=== PATIENT | male | born 1965 | race Caucasian/White ===

== ENCOUNTER 2022-07-06 13:10 | Inpatient (IN) | payer OTHER ==
[~2022-07-06 13:10] MED LIST: Heparin 1,000 UNITS/ML VIAL ONE
[2022-07-06 13:45] LABS: Hemoglobin 17.8 g/dL (14.0-18.0); Mean Corpuscular HGB CONC 34.7 g/dL (32.0-36.0); Mean Corpuscular Hemoglobin 38.6 pg (27.0-31.0); Mean Platelet Volume 7.4 fL (7.4-10.4); Platelet Count 286 thou/uL (130-400); RBC Distribution Width 12.7 % (11.5-14.5); Red Blood Cell (RBC) Count 4.61 mill/uL (4.70-6.10); White Blood Cell (WBC) Count 20.5 thou/uL (4.8-10.8)
[2022-07-06 14:00] LABS: Band 19 % (5-11); Lymphocytes 4 % (21-51); MDiff Complete? YES; Macrocytosis MODERATE=16-30 cells (100X) (0-5/hpf); Monocytes 4 % (0-10); Neutrophil 72 % (42-75); Platelet Morphology Comment Appears Adequate; Polychromasia SLIGHT = 2-3 cells (100X) (0-2/hpf); Reactive Lymphocytes 1 % (0-10); Stomatocytes SLIGHT = 2-5 cells (100X) (0-1/hpf)
[2022-07-06 14:08] LABS: ALT (SGPT) 107 U/L (8-55); AST (SGOT) 157 U/L (5-34); Albumin 3.7 g/dL (3.5-5.0); Alkaline Phosphatase 198 U/L (40-110); Anion Gap 25 mmol/L (10-20); BUN (Urea Nitrogen) 17 mg/dL (8.4-25.7); Bilirubin, Total 2.5 mg/dL (0.2-1.2); Calc. Creatinine Clearance 0 mL/min (70-130); Calcium 10.4 mg/dL (7.8-10.44); Carbon Dioxide 25 mmol/L (22-29); Chloride 91 mmol/L (98-107); Estimated GFR 19; Globulin 3.8 g/dL (2.4-3.5); Glucose 131 mg/dL (70-105); Magnesium 1.4 mg/dL (1.6-2.6); Potassium 3.2 mmol/L (3.5-5.1); Protein, Total 7.5 g/dL (6.0-8.3); Sodium 138 mmol/L (136-145)
[2022-07-06 14:22] LABS: Lipase 2961 U/L (8-78)
[2022-07-06 15:04] LABS: INR-International Normal Ratio 1.1; Prothrombin Time 14.6 sec (12.0-14.7)
[2022-07-06] MEDS ORDERED: Magnesium 2 GM/50 ML BAG (IN WATER) ONE (16:05)
[2022-07-06] MEDS ORDERED: Meropenem 1 GM in Sodium Chloride 0.9% 100 ML IVPB SCH ×3 (16:15→18:30)
[2022-07-06] MEDS ORDERED: Senokot S 8.6-50 MG TAB PO PRN (17:07)
[2022-07-06] MEDS ORDERED: Ondansetron ODT 4 MG TAB PO PRN (17:07)
[2022-07-06] MEDS ORDERED: Calcium Carbonate 500 MG ChewTAB PO PRN (17:07)
[2022-07-06] MEDS ORDERED: Ondansetron PF 4 MG/2 ML Vial IVP PRN (17:07)
[2022-07-06] MEDS ORDERED: Lorazepam 1 MG TAB PO PRN (17:15)
[2022-07-06] MEDS ORDERED: Multivitamins, Adult 10 ML, Folic Acid 1 MG, Thiamine HCl 100 MG in Dextrose 5 %-0.45 %... IV SCH (17:15)
[2022-07-06] MEDS ORDERED: Lorazepam 2 MG/ML VIAL IM PRN (17:15)
[2022-07-06] MEDS ORDERED: Magnesium 2 GM/50 ML(in water) 2 GM in Premix Bag 1 BAG IVPB SCH (17:15)
[2022-07-06] MEDS ORDERED: Electrolyte Replacement Protocol 1 EACH FS SCH ×2 (17:15)
[2022-07-06] MEDS ORDERED: Morphine 2 MG/ML VIAL SLOW IVP PRN (17:22)
[2022-07-06] MEDS ORDERED: cloNIDine 0.1 MG TAB PO PRN (17:23)
[2022-07-06 17:49] LABS: Anion Gap 17 mmol/L (10-20); BUN (Urea Nitrogen) 19 mg/dL (8.4-25.7); Calc. Creatinine Clearance 0 mL/min (70-130); Calcium 7.9 mg/dL (7.8-10.44); Carbon Dioxide 24 mmol/L (22-29); Chloride 100 mmol/L (98-107); Estimated GFR 21; Glucose 87 mg/dL (70-105); Potassium 3.3 mmol/L (3.5-5.1); Sodium 138 mmol/L (136-145)
[2022-07-06 18:04] LABS: SARS-CoV-2 NAA Rapid Test Not Detected (NotDetected)
[2022-07-06] MEDS ORDERED: Potassium Chloride 20 MEQ TAB PO SCH (18:30)
[2022-07-06] MEDS: Lorazepam 1 MG TAB PO SCH (19:45)
[2022-07-06] MEDS: Heparin 5,000 UNITS/ML VIAL SC SCH (21:34)
[2022-07-06] MEDS: Pantoprazole 40 MG VIAL IVP SCH (21:34)
[2022-07-07] MEDS: Sodium Chloride 0.9% 1,000 ML IV SCH ×6 (00:30→23:21)
[2022-07-07] MEDS: Lorazepam 1 MG TAB PO SCH ×5 (00:45→22:19)
[2022-07-07] MEDS: Meropenem 1 GM in Sodium Chloride 0.9% 100 ML IVPB SCH ×2 (01:15→15:13)
[2022-07-07 04:26] LABS: Lactic Acid 1.6 mmol/L (0.5-2.2)
[2022-07-07 04:34] LABS: Phosphorus 1.9 mg/dL (2.3-4.7)
[2022-07-07 04:35] LABS: ALT (SGPT) 61 U/L (8-55); AST (SGOT) 97 U/L (5-34); Albumin 2.5 g/dL (3.5-5.0); Alkaline Phosphatase 133 U/L (40-110); Anion Gap 13 mmol/L (10-20); BUN (Urea Nitrogen) 26 mg/dL (8.4-25.7); Bilirubin, Total 1.4 mg/dL (0.2-1.2); Calc. Creatinine Clearance 27 mL/min (70-130); Calcium 6.7 mg/dL (7.8-10.44); Carbon Dioxide 25 mmol/L (22-29); Chloride 101 mmol/L (98-107); Estimated GFR 23; Globulin 2.5 g/dL (2.4-3.5); Glucose 101 mg/dL (70-105); Magnesium 1.6 mg/dL (1.6-2.6); Potassium 3.4 mmol/L (3.5-5.1); Sodium 136 mmol/L (136-145)
[2022-07-07 04:54] LABS: #Lymphocytes 1.5 thou/uL (1.20-3.40); #Monocytes 1.3 thou/uL (0.11-0.59); %Basophils 0.1 % (0.0-1.0); %Eosinophils 0.3 % (0.0-10.0); %Lymphocytes 10.3 % (21.0-51.0); %Monocytes 8.8 % (0.0-10.0); %Neutrophils 80.5 % (42.0-75.0); Band 19 % (5-11); Hemoglobin 13.7 g/dL (14.0-18.0); Lymphocytes 1 % (21-51); MDiff Complete? YES; Mean Corpuscular HGB CONC 34.3 g/dL (32.0-36.0); Mean Corpuscular Hemoglobin 39.1 pg (27.0-31.0); Mean Platelet Volume 7.5 fL (7.4-10.4); Monocytes 5 % (0-10); Neutrophil 75 % (42-75); Nucleated RBC 1 % (0); Platelet Count 202 thou/uL (130-400); RBC Distribution Width 12.4 % (11.5-14.5); Red Blood Cell (RBC) Count 3.49 mill/uL (4.70-6.10); White Blood Cell (WBC) Count 14.9 thou/uL (4.8-10.8)
[2022-07-07] MEDS ORDERED: Potassium Phosphate 15 MMOL in Sodium Chloride 0.9% 100 ML IVPB SCH (06:00)
[2022-07-07] MEDS ORDERED: Magnesium 2 GM/50 ML(in water) 2 GM in Premix Bag 1 BAG IVPB SCH (09:00)
[2022-07-07] MEDS ORDERED: cloNIDine 0.1 MG TAB PO PRN (10:40)
[2022-07-07] MEDS ORDERED: PHOS-NAK 1 PKT PACK PO SCH ×2 (10:45)
[2022-07-07] MEDS: Cyanocobalamin (Vitamin B-12) 1,000 MCG TAB PO SCH (10:54)
[2022-07-07] MEDS: Multivit, Therapeutic 1 TAB PO SCH (10:54)
[2022-07-07] MEDS: pyridOXINE 50 MG (B6) TAB PO SCH (10:54)
[2022-07-07] MEDS: Folic Acid 1 MG TAB PO SCH (10:54)
[2022-07-07] MEDS: Pantoprazole 40 MG VIAL IVP SCH ×2 (10:54→20:08)
[2022-07-07] MEDS: Heparin 5,000 UNITS/ML VIAL SC SCH ×2 (10:54→20:08)
[2022-07-07] MEDS: Thiamine 100 MG TAB PO SCH (10:54)
[2022-07-07 11:08] LABS: Lipase 857 U/L (8-78)
[2022-07-07] MEDS: Albumin 25% 25 GM/100 ML BOT IVPB SCH ×3 (11:10→23:21)
[2022-07-07] MEDS: Meropenem 500 MG in Sodium Chloride 0.9% 100 ML IVPB SCH (15:17)
[2022-07-07] MEDS ORDERED: chlordiazePOXIDE HCl 25 MG CAP PO SCH (16:45)
[2022-07-07] MEDS ORDERED: Fentanyl 100 MCG/2 ML VIAL SLOW IVP PRN (22:06)
[2022-07-08] MEDS: Lorazepam 1 MG TAB PO PRN ×3 (02:46→13:05)
[2022-07-08] MEDS: Meropenem 500 MG in Sodium Chloride 0.9% 100 ML IVPB SCH (02:56)
[2022-07-08] MEDS: Sodium Chloride 0.9% 1,000 ML IV SCH (02:57)
[2022-07-08] MEDS: Lorazepam 1 MG TAB PO SCH ×3 (05:21→17:35)
[2022-07-08] MEDS: Albumin 25% 25 GM/100 ML BOT IVPB SCH ×3 (05:21→13:19)
[2022-07-08] MEDS ORDERED: Furosemide 40 MG/4 ML VIAL SLOW IVP SCH (05:45)
[2022-07-08] MEDS ORDERED: methylPREDNISolone Sod Succ 40 MG VIAL IVP SCH (06:00)
[2022-07-08 06:34] LABS: Bacteria/HPF None Seen HPF (None Seen); Bilirubin Negative (Negative); Blood, Urine 2+ (Negative); Clarity Clear (Clear); Glucose, Urine (Dipstick) 70 mg/dL (Negative); Ketone, Urine 10 mg/dL (Negative); Leukocyte Negative Leu/uL (Negative); Nitrite Negative (Negative); Protein, Urine (Dipstick) 30 mg/dL (Neg-Trace); RBC/HPF 0-3 HPF (0-3); Specific Gravity, Urine 1.014 (1.002-1.036); Squamous Epithelial None Seen HPF (0-3); Urobilinogen Normal mg/dL (Less than 2); WBC/HPF 0-3 HPF (0-3); pH, Urine 5.5 (5.0-9.0)
[2022-07-08 07:18] LABS: #Lymphocytes 0.9 thou/uL (1.20-3.40); #Monocytes 1.3 thou/uL (0.11-0.59); #Neutrophils 11.2 thou/uL (1.40-6.50); %Basophils 0.1 % (0.0-1.0); %Eosinophils 0.2 % (0.0-10.0); %Monocytes 9.5 % (0.0-10.0); %Neutrophils 83.2 % (42.0-75.0); Hemoglobin 11.8 g/dL (14.0-18.0); Mean Corpuscular Hemoglobin 37.8 pg (27.0-31.0); Mean Platelet Volume 7.4 fL (7.4-10.4); Platelet Count 192 thou/uL (130-400); RBC Distribution Width 12.2 % (11.5-14.5); Red Blood Cell (RBC) Count 3.13 mill/uL (4.70-6.10); White Blood Cell (WBC) Count 13.5 thou/uL (4.8-10.8)
[2022-07-08 07:28] LABS: Phosphorus 1.9 mg/dL (2.3-4.7)
[2022-07-08 07:35] LABS: ALT (SGPT) 45 U/L (8-55); AST (SGOT) 83 U/L (5-34); Albumin 3.6 g/dL (3.5-5.0); Alkaline Phosphatase 113 U/L (40-110); Anion Gap 18 mmol/L (10-20); BUN (Urea Nitrogen) 24 mg/dL (8.4-25.7); Bilirubin, Total 1.4 mg/dL (0.2-1.2); Calc. Creatinine Clearance 73 mL/min (70-130); Calcium 5.4 mg/dL (7.8-10.44); Carbon Dioxide 15 mmol/L (22-29); Chloride 103 mmol/L (98-107); Estimated GFR 71; Globulin 2.2 g/dL (2.4-3.5); Glucose 77 mg/dL (70-105); Lipase 179 U/L (8-78); Magnesium 1.6 mg/dL (1.6-2.6); Potassium 2.7 mmol/L (3.5-5.1); Protein, Total 5.8 g/dL (6.0-8.3); Sodium 133 mmol/L (136-145)
[2022-07-08] MEDS ORDERED: Electrolyte Replacement Protocol 1 EACH FS SCH ×2 (07:45→18:26)
[2022-07-08] MEDS ORDERED: Potassium Phosphate 15 MMOL in Sodium Chloride 0.9% 100 ML IVPB SCH (08:00)
[2022-07-08] MEDS ORDERED: Potassium Chloride 20 MEQ in Premix Bag 1 BAG IVPB SCH (08:00)
[2022-07-08] MEDS ORDERED: chlordiazePOXIDE HCl 25 MG CAP PO SCH (09:00)
[2022-07-08] MEDS: Thiamine 100 MG TAB PO SCH (09:03)
[2022-07-08] MEDS: Folic Acid 1 MG TAB PO SCH (09:03)
[2022-07-08] MEDS: Pantoprazole 40 MG VIAL IVP SCH ×2 (09:03→20:44)
[2022-07-08] MEDS: Multivit, Therapeutic 1 TAB PO SCH (09:03)
[2022-07-08] MEDS: Heparin 5,000 UNITS/ML VIAL SC SCH ×2 (09:03→20:22)
[2022-07-08] MEDS: Cyanocobalamin (Vitamin B-12) 1,000 MCG TAB PO SCH (09:03)
[2022-07-08] MEDS: pyridOXINE 50 MG (B6) TAB PO SCH (11:02)
[2022-07-08] MEDS ORDERED: Magnesium Sulfate In Water 4 GM in Premix Bag 1 BAG IVPB SCH (12:00)
[2022-07-08 13:00] LABS: Actual Bicarbonate (HCO3v) 15 mEq/L (22-28); Base Excess -8.2 mEq/L (-2.0 to +3.0); Calcium, Ionized (venous) 0.72 mmol/L (1.16-1.32); Chloride (VBG) 102 mmol/L (98-106); Hemoglobin (Hb) 12.7 g/dL (13.1-17.2); Potassium (VBG) 2.81 mmol/L (3.70-5.30); Sodium 133.8 mmol/L (133-146); pH (venous) 7.38 (7.32-7.43)
[2022-07-08] MEDS: Meropenem 1 GM in Sodium Chloride 0.9% 100 ML IVPB SCH ×2 (14:14→20:44)
[2022-07-08] MEDS ORDERED: Dexmedetomidine In 0.9 % NaCl 100 ML IVPB SCH (15:15)
[2022-07-08] MEDS ORDERED: Sodium Bicarbonate 150 MEQ in Dextrose 5% in Water 1,000 ML IV SCH (15:30)
[2022-07-08] MEDS: Midazolam HCl 2 mg/2 ml Vial SLOW IVP PRN ×3 (15:55→18:47)
[2022-07-08] MEDS ORDERED: Lorazepam 1 MG TAB PO PRN (17:16)
[2022-07-08] MEDS ORDERED: Lorazepam 0.5 MG TAB PO SCH (17:30)
[2022-07-08 17:59] LABS: Albumin 3.2 g/dL (3.5-5.0); Anion Gap 23 mmol/L (10-20); BUN (Urea Nitrogen) 24 mg/dL (8.4-25.7); BUN/Creatinine Ratio 24.24; Calc. Creatinine Clearance 89 mL/min (70-130); Carbon Dioxide 8 mmol/L (22-29); Chloride 104 mmol/L (98-107); Estimated GFR 89; Glucose 75 mg/dL (70-105); Phosphorus 2.6 mg/dL (2.3-4.7); Potassium 2.9 mmol/L (3.5-5.1); Sodium 132 mmol/L (136-145)
[2022-07-08] MEDS ORDERED: Calcium Gluc 4.6 MEQ/10 ML (100 MG/ML) SLOW IVP SCH ×4 (18:08→23:45)
[2022-07-08] MEDS ORDERED: Sodium Bicarb 50 MEQ/50 ML Abboject 8.4% SYRINGE IVP SCH (18:15)
[2022-07-08 18:31] LABS: Actual Bicarbonate (HCO3v) 18 mEq/L (22-28); Base Excess -5.4 mEq/L (-2.0 to +3.0); Calcium, Ionized (venous) 0.67 mmol/L (1.16-1.32); Chloride (VBG) 102 mmol/L (98-106); Hemoglobin (Hb) 11.9 g/dL (13.1-17.2); Potassium (VBG) 2.78 mmol/L (3.70-5.30); pH (venous) 7.41 (7.32-7.43)
[2022-07-08] MEDS ORDERED: Fentanyl 100 MCG/2 ML VIAL ONE (18:37)
[2022-07-08] MEDS ORDERED: Fentanyl CADD 100 ML ONE (18:54)
[2022-07-08] MEDS ORDERED: Ventilator Sedation Protocol 1 EACH FS ONE (18:55)
[2022-07-08] MEDS: Fentanyl CADD 100 ML IV SCH (19:05)
[2022-07-08] MEDS ORDERED: Propofol BOLUS 1,000 MG/100 ML VIAL IV PRN (19:15)
[2022-07-08] MEDS ORDERED: DISCONTINUE PREVIOUS NARCOTIC PAIN MEDICATIONS AND BENZODIAZEPINES FS SCH (19:15)
[2022-07-08] MEDS ORDERED: Propofol 1,000 MG/100 ML VIAL IV PRN (19:15)
[2022-07-08] MEDS ORDERED: Fentanyl BOLUS 250 ML IVPB PRN (19:15)
[2022-07-08 19:17] LABS: Actual Bicarbonate (HCO3a) 17.6 mEq/L (22-28); Base Excess (BEa) -6.6 mEq/L (-2.0 to +3.0); CO2 Tension 30.7 mmHg (35.0-45.0); Carboxyhemoglobin (COHb) 0.3 gm% (0.0-3.0); Hemoglobin (Hb) 11.3 g/dL (14.0-18.0); O2 Tension (PaO2), arterial 100.6 mmHg (80.0-100.0); Potassium - ABG Lab 2.47 mmol/L (3.70-5.30); pH, Arterial 7.38 (7.35-7.45)
[2022-07-08 19:26] LABS: ALV-art Gradient 288.825 mmHg (0-20); Puncture Site LRA
[2022-07-08] MEDS ORDERED: Rocuronium Bromide 50 MG/5 ML VIAL IVP SCH (19:30)
[2022-07-08] MEDS ORDERED: Rocuronium Bromide 10 MG/ML (10ML VIAL) ONE (19:33)
[2022-07-08] MEDS: Sodium Bicarbonate 150 MEQ in Dextrose 5% in Water 1,000 ML IV SCH (19:47)
[2022-07-08] MEDS: Potassium Chloride 20 MEQ in Premix Bag 1 BAG IVPB SCH ×2 (20:44→22:37)
[2022-07-08 22:56] LABS: Anion Gap 19 mmol/L (10-20); BUN (Urea Nitrogen) 23 mg/dL (8.4-25.7); Calc. Creatinine Clearance 93 mL/min (70-130); Carbon Dioxide 18 mmol/L (22-29); Chloride 102 mmol/L (98-107); Estimated GFR 94; Glucose 127 mg/dL (70-105); Sodium 136 mmol/L (136-145)
[2022-07-08 23:01] LABS: Calcium 5.1 mg/dL (7.8-10.44); Potassium 2.8 mmol/L (3.5-5.1)
[2022-07-08 23:53] LABS: Magnesium 2.2 mg/dL (1.6-2.6)
[2022-07-09] MEDS: Potassium Chloride 20 MEQ in Premix Bag 1 BAG IVPB SCH ×8 (00:26→13:57)
[2022-07-09] MEDS: Sodium Bicarbonate 150 MEQ in Dextrose 5% in Water 1,000 ML IV SCH (03:26)
[2022-07-09] MEDS: Meropenem 1 GM in Sodium Chloride 0.9% 100 ML IVPB SCH ×3 (04:01→20:43)
[2022-07-09 04:03] LABS: Lactic Acid 1.5 mmol/L (0.5-2.2)
[2022-07-09 04:04] LABS: Phosphorus 2.2 mg/dL (2.3-4.7)
[2022-07-09 04:07] LABS: ALT (SGPT) 32 U/L (8-55); AST (SGOT) 58 U/L (5-34); Albumin 2.8 g/dL (3.5-5.0); Alkaline Phosphatase 93 U/L (40-110); Anion Gap 15 mmol/L (10-20); BUN (Urea Nitrogen) 24 mg/dL (8.4-25.7); Calc. Creatinine Clearance 84 mL/min (70-130); Carbon Dioxide 27 mmol/L (22-29); Chloride 97 mmol/L (98-107); Estimated GFR 83; Globulin 1.8 g/dL (2.4-3.5); Glucose 302 mg/dL (70-105); Protein, Total 4.6 g/dL (6.0-8.3); Sodium 136 mmol/L (136-145)
[2022-07-09 04:13] LABS: Potassium 2.7 mmol/L (3.5-5.1)
[2022-07-09] MEDS ORDERED: Potassium Chloride 20 MEQ in Premix Bag 1 BAG IVPB SCH (05:00)
[2022-07-09 05:12] LABS: Band 31 % (5-11); Eosinophils 1 % (0-10); Hemoglobin 9.9 g/dL (14.0-18.0); Lymphocytes 12 % (21-51); MDiff Complete? YES; Mean Corpuscular HGB CONC 34.6 g/dL (32.0-36.0); Mean Corpuscular Hemoglobin 38.6 pg (27.0-31.0); Mean Platelet Volume 7.6 fL (7.4-10.4); Monocytes 3 % (0-10); Neutrophil 53 % (42-75); Platelet Count 180 thou/uL (130-400); RBC Distribution Width 12.3 % (11.5-14.5); Red Blood Cell (RBC) Count 2.57 mill/uL (4.70-6.10); White Blood Cell (WBC) Count 10.4 thou/uL (4.8-10.8)
[2022-07-09] MEDS ORDERED: Sodium Chloride 0.9% 500 ML IVPB SCH (07:00)
[2022-07-09 07:41] LABS: Actual Bicarbonate (HCO3a) 21.1 mEq/L (22-28); Base Excess (BEa) -0.5 mEq/L (-2.0 to +3.0); CO2 Tension 26.6 mmHg (35.0-45.0); O2 Tension (PaO2), arterial 63.9 mmHg (80.0-100.0); pH, Arterial 7.52 (7.35-7.45)
[2022-07-09 07:42] LABS: Analyzer IN Cardio OR; Calcium, Ionized (arterial) 0.76 mmol/L (1.12-1.30); Carboxyhemoglobin (COHb) 0.5 gm% (0.0-3.0); Hemoglobin (Hb) 12.9 g/dL (14.0-18.0); Potassium - ABG Lab 3.03 mmol/L (3.70-5.30); Puncture Site LRA
[2022-07-09] MEDS ORDERED: Sodium Chloride 0.9% 1,000 ML IV SCH ×2 (07:45→09:00)
[2022-07-09] MEDS ORDERED: Magnesium 2 GM/50 ML(in water) 2 GM in Premix Bag 1 BAG IVPB SCH (08:00)
[2022-07-09] MEDS: Multivit, Therapeutic 1 TAB PO SCH (08:56)
[2022-07-09] MEDS: Folic Acid 1 MG TAB PO SCH (08:56)
[2022-07-09] MEDS: pyridOXINE 50 MG (B6) TAB PO SCH (08:56)
[2022-07-09] MEDS: Pantoprazole 40 MG VIAL IVP SCH ×2 (08:56→20:44)
[2022-07-09] MEDS: Cyanocobalamin (Vitamin B-12) 1,000 MCG TAB PO SCH (08:56)
[2022-07-09] MEDS: Thiamine 100 MG TAB PO SCH (08:56)
[2022-07-09] MEDS: Heparin 5,000 UNITS/ML VIAL SC SCH ×2 (08:56→20:44)
[2022-07-09] MEDS: Sodium Chloride 0.9% 1,000 ML IV SCH ×4 (08:57→20:00)
[2022-07-09] MEDS: CALCIUM GLUC 1GM/NS 50ML 1 GM in Premix Bag 1 BAG IVPB SCH ×2 (09:39→10:51)
[2022-07-09 10:37] LABS: Free T4 (Free Thyroxine) 0.88 ng/dL (0.70-1.48)
[2022-07-09] MEDS: Midazolam HCl 2 mg/2 ml Vial SLOW IVP PRN ×2 (10:50→15:44)
[2022-07-09] MEDS: Albumin 25% 25 GM/100 ML BOT IVPB SCH ×3 (12:11→23:26)
[2022-07-09] MEDS ORDERED: Fentanyl CADD 100 ML ONE (16:55)
[2022-07-09] MEDS: Fentanyl CADD 100 ML IV SCH (16:58)
[2022-07-09] MEDS ORDERED: Lorazepam 0.5 MG TAB PO PRN (17:16)
[2022-07-09 17:30] LABS: Anion Gap 15 mmol/L (10-20); BUN (Urea Nitrogen) 27 mg/dL (8.4-25.7); Calc. Creatinine Clearance 65 mL/min (70-130); Calcium 4.9 mg/dL (7.8-10.44); Carbon Dioxide 18 mmol/L (22-29); Chloride 109 mmol/L (98-107); Estimated GFR 59; Glucose 89 mg/dL (70-105); Potassium 4.3 mmol/L (3.5-5.1); Sodium 138 mmol/L (136-145)
[2022-07-09] MEDS ORDERED: Calcium Gluconate 4.6 MEQ in Sodium Chloride 0.9% 100 ML IVPB ONE (17:35)
[2022-07-09] MEDS ORDERED: CALCIUM GLUC 1GM/NS 50ML 1 GM in Premix Bag 1 BAG IVPB SCH (17:45)
[2022-07-09] MEDS ORDERED: Calcium Gluc 4.6 MEQ/10 ML (100 MG/ML) SLOW IVP SCH (18:00)
[2022-07-10] MEDS: Sodium Chloride 0.9% 1,000 ML IV SCH ×2 (00:34→06:44)
[2022-07-10] MEDS ORDERED: Dextrose 50% Abboject 50 ML SYRINGE SLOW IVP PRN (00:45)
[2022-07-10 04:26] LABS: Phosphorus 2.1 mg/dL (2.3-4.7)
[2022-07-10 04:27] LABS: ALT (SGPT) 30 U/L (8-55); AST (SGOT) 74 U/L (5-34); Albumin 3.4 g/dL (3.5-5.0); Alkaline Phosphatase 85 U/L (40-110); Anion Gap 19 mmol/L (10-20); BUN (Urea Nitrogen) 30 mg/dL (8.4-25.7); Bilirubin, Total 1.7 mg/dL (0.2-1.2); Calc. Creatinine Clearance 47 mL/min (70-130); Carbon Dioxide 14 mmol/L (22-29); Chloride 110 mmol/L (98-107); Estimated GFR 40; Globulin 1.7 g/dL (2.4-3.5); Glucose 99 mg/dL (70-105); Magnesium 2.2 mg/dL (1.6-2.6); Protein, Total 5.1 g/dL (6.0-8.3); Sodium 139 mmol/L (136-145)
[2022-07-10 04:33] LABS: Calcium 5.2 mg/dL (7.8-10.44)
[2022-07-10 05:05] LABS: Band 38 % (5-11); Hemoglobin 9.3 g/dL (14.0-18.0); Lymphocytes 8 % (21-51); MDiff Complete? YES; Mean Corpuscular HGB CONC 33.3 g/dL (32.0-36.0); Mean Corpuscular Hemoglobin 38.5 pg (27.0-31.0); Mean Platelet Volume 8.1 fL (7.4-10.4); Monocytes 5 % (0-10); Neutrophil 49 % (42-75); Platelet Count 181 thou/uL (130-400); RBC Distribution Width 12.4 % (11.5-14.5); Red Blood Cell (RBC) Count 2.43 mill/uL (4.70-6.10); Toxic Granulation SLIGHT
[2022-07-10] MEDS: Albumin 25% 25 GM/100 ML BOT IVPB SCH (05:12)
[2022-07-10] MEDS: Meropenem 1 GM in Sodium Chloride 0.9% 100 ML IVPB SCH ×2 (05:12→17:52)
[2022-07-10] MEDS ORDERED: Calcium Gluc 4.6 MEQ/10 ML (100 MG/ML) SLOW IVP SCH (06:45)
[2022-07-10] MEDS: Midazolam HCl 2 mg/2 ml Vial SLOW IVP PRN (07:07)
[2022-07-10 07:18] LABS: Base Excess (BEa) -9.3 mEq/L (-2.0 to +3.0); CO2 Tension 32.7 mmHg (35.0-45.0); Calcium, Ionized (arterial) 0.84 mmol/L (1.12-1.30); Carboxyhemoglobin (COHb) 0.1 gm% (0.0-3.0); Hemoglobin (Hb) 10.7 g/dL (14.0-18.0); Potassium - ABG Lab 4.27 mmol/L (3.70-5.30); pH, Arterial 7.31 (7.35-7.45)
[2022-07-10] MEDS: NOREPINEPHRINE 8 MG/250 ML-D5W 250 ML IVPB SCH (07:19)
[2022-07-10 07:45] LABS: ALV-art Gradient 210.225 mmHg (0-20); O2 Tension (PaO2), arterial 34.1 mmHg (80.0-100.0); Puncture Site RRA
[2022-07-10] MEDS ORDERED: Midazolam In 0.9 % NaCl/PF 100 MG in Premix Bag 1 BAG IVPB SCH (08:45)
[2022-07-10] MEDS ORDERED: Sodium Chloride 0.9% 1,000 ML IV SCH (08:59)
[2022-07-10] MEDS: Heparin 5,000 UNITS/ML VIAL SC SCH ×2 (09:21→20:11)
[2022-07-10] MEDS: Multivit, Therapeutic 1 TAB PO SCH (09:21)
[2022-07-10] MEDS: Thiamine 100 MG TAB PO SCH (09:21)
[2022-07-10] MEDS: pyridOXINE 50 MG (B6) TAB PO SCH (09:21)
[2022-07-10] MEDS: Folic Acid 1 MG TAB PO SCH (09:21)
[2022-07-10] MEDS: Cyanocobalamin (Vitamin B-12) 1,000 MCG TAB PO SCH (09:21)
[2022-07-10] MEDS: Pantoprazole 40 MG VIAL IVP SCH ×2 (09:22→20:11)
[2022-07-10] MEDS ORDERED: Fentanyl CADD 100 ML ONE (16:05)
[2022-07-10] MEDS: Fentanyl CADD 100 ML IV SCH (16:12)
[2022-07-10] MEDS: Dextrose 5 % And 0.9 % NaCl 1,000 ML IV SCH (17:51)
[2022-07-10 18:47] LABS: Anion Gap 20 mmol/L (10-20); BUN (Urea Nitrogen) 33 mg/dL (8.4-25.7); Calc. Creatinine Clearance 55 mL/min (70-130); Carbon Dioxide 13 mmol/L (22-29); Chloride 110 mmol/L (98-107); Estimated GFR 47; Glucose 76 mg/dL (70-105); Potassium 4.2 mmol/L (3.5-5.1); Sodium 139 mmol/L (136-145)
[2022-07-10 18:53] LABS: Calcium 5.4 mg/dL (7.8-10.44)
[2022-07-10] MEDS ORDERED: Furosemide 100 MG/10 ML VIAL SLOW IVP SCH (19:15)
[2022-07-10] MEDS ORDERED: Sodium Bicarb 50 MEQ/50 ML Abboject 8.4% SYRINGE IVP SCH (19:30)
[2022-07-10] MEDS: Sodium Bicarb 50 MEQ/50 ML VIAL IVP SCH ×2 (20:11→22:02)
[2022-07-11] MEDS: Sodium Bicarb 50 MEQ/50 ML VIAL IVP SCH (00:12)
[2022-07-11] MEDS: Meropenem 1 GM in Sodium Chloride 0.9% 100 ML IVPB SCH ×3 (04:13→22:04)
[2022-07-11 04:55] LABS: Lactic Acid 1.7 mmol/L (0.5-2.2)
[2022-07-11 05:04] LABS: ALT (SGPT) 36 U/L (8-55); AST (SGOT) 112 U/L (5-34); Albumin 2.8 g/dL (3.5-5.0); Alkaline Phosphatase 134 U/L (40-110); Anion Gap 18 mmol/L (10-20); BUN (Urea Nitrogen) 34 mg/dL (8.4-25.7); Bilirubin, Total 1.8 mg/dL (0.2-1.2); Calc. Creatinine Clearance 63 mL/min (70-130); Carbon Dioxide 19 mmol/L (22-29); Chloride 110 mmol/L (98-107); Estimated GFR 55; Glucose 107 mg/dL (70-105); Potassium 3.7 mmol/L (3.5-5.1); Protein, Total 4.8 g/dL (6.0-8.3); Sodium 143 mmol/L (136-145)
[2022-07-11 05:07] LABS: Calcium 5.4 mg/dL (7.8-10.44)
[2022-07-11 05:08] LABS: Band 24 % (5-11); Hemoglobin 10.4 g/dL (14.0-18.0); Hypochromia SLIGHT = 6-15 cells (100X) (0-5/hpf); Lymphocytes 12 % (21-51); MDiff Complete? YES; Macrocytosis SLIGHT = 6-15 cells (100X) (0-5/hpf); Mean Corpuscular HGB CONC 32.9 g/dL (32.0-36.0); Mean Platelet Volume 7.8 fL (7.4-10.4); Monocytes 4 % (0-10); Neutrophil 60 % (42-75); Platelet Count 243 thou/uL (130-400); Platelet Morphology Comment Appears Adequate; RBC Distribution Width 12.6 % (11.5-14.5); Red Blood Cell (RBC) Count 2.74 mill/uL (4.70-6.10); White Blood Cell (WBC) Count 17.2 thou/uL (4.8-10.8)
[2022-07-11 05:10] LABS: Phosphorus 2.7 mg/dL (2.3-4.7)
[2022-07-11 07:23] LABS: Actual Bicarbonate (HCO3a) 18.1 mEq/L (22-28); Base Excess (BEa) -4.7 mEq/L (-2.0 to +3.0); CO2 Tension 28.2 mmHg (35.0-45.0); Potassium - ABG Lab 3.54 mmol/L (3.70-5.30); pH, Arterial 7.43 (7.35-7.45)
[2022-07-11 07:29] LABS: O2 Tension (PaO2), arterial 51.6 mmHg (80.0-100.0); Puncture Site RRA
[2022-07-11] MEDS ORDERED: Magnesium 2 GM/50 ML(in water) 2 GM in Premix Bag 1 BAG IVPB SCH (08:00)
[2022-07-11] MEDS: Thiamine 100 MG TAB PO SCH (08:45)
[2022-07-11] MEDS: Pantoprazole 40 MG VIAL IVP SCH ×2 (08:46→21:41)
[2022-07-11] MEDS: Folic Acid 1 MG TAB PO SCH (08:46)
[2022-07-11] MEDS: Heparin 5,000 UNITS/ML VIAL SC SCH ×2 (08:46→21:41)
[2022-07-11] MEDS: Multivit, Therapeutic 1 TAB PO SCH (08:47)
[2022-07-11] MEDS: pyridOXINE 50 MG (B6) TAB PO SCH (08:47)
[2022-07-11] MEDS: Cyanocobalamin (Vitamin B-12) 1,000 MCG TAB PO SCH (08:47)
[2022-07-11] MEDS: NOREPINEPHRINE 8 MG/250 ML-D5W 250 ML IVPB SCH ×2 (08:58→11:35)
[2022-07-11] MEDS ORDERED: Meropenem 1 GM in Sodium Chloride 0.9% 100 ML IVPB SCH (13:00)
[2022-07-11] MEDS: Metoclopramide HCl 10 MG/2 ML VIAL IVP SCH ×2 (13:30→21:42)
[2022-07-11] MEDS ORDERED: CALCIUM GLUC 1GM/NS 50ML 1 GM in Premix Bag 1 BAG IVPB SCH (15:00)
[2022-07-11] MEDS: Dextrose 5 % And 0.9 % NaCl 1,000 ML IV SCH (15:40)
[2022-07-11 16:34] LABS: Anion Gap 15 mmol/L (10-20); BUN (Urea Nitrogen) 35 mg/dL (8.4-25.7); Calc. Creatinine Clearance 79 mL/min (70-130); Carbon Dioxide 20 mmol/L (22-29); Chloride 111 mmol/L (98-107); Estimated GFR 68; Glucose 122 mg/dL (70-105); Potassium 3.7 mmol/L (3.5-5.1); Sodium 142 mmol/L (136-145)
[2022-07-11 16:45] LABS: Calcium 5.3 mg/dL (7.8-10.44)
[2022-07-11] MEDS: Fentanyl CADD 100 ML IV SCH (20:02)
[2022-07-12] MEDS: NOREPINEPHRINE 8 MG/250 ML-D5W 250 ML IVPB SCH ×4 (00:44→22:08)
[2022-07-12] MEDS ORDERED: Sodium Bicarb 50 MEQ/50 ML VIAL ONE ×3 (02:57→10:55)
[2022-07-12 03:00] LABS: Actual Bicarbonate (HCO3a) 19.4 mEq/L (22-28); Analyzer IN Cardio ER; Base Excess (BEa) -6.8 mEq/L (-2.0 to +3.0); CO2 Tension 41.4 mmHg (35.0-45.0); Calcium, Ionized (arterial) 0.87 mmol/L (1.12-1.30); Carboxyhemoglobin (COHb) 0.3 gm% (0.0-3.0); Hemoglobin (Hb) 12.2 g/dL (14.0-18.0); Potassium - ABG Lab 3.85 mmol/L (3.70-5.30); pH, Arterial 7.29 (7.35-7.45)
[2022-07-12 03:02] LABS: Puncture Site RRA
[2022-07-12 03:04] LABS: Hemoglobin 11.3 g/dL (14.0-18.0); Mean Corpuscular HGB CONC 32.9 g/dL (32.0-36.0); Mean Corpuscular Hemoglobin 38.3 pg (27.0-31.0); Mean Platelet Volume 8.1 fL (7.4-10.4); Platelet Count 240 thou/uL (130-400); Red Blood Cell (RBC) Count 2.95 mill/uL (4.70-6.10); White Blood Cell (WBC) Count 23.8 thou/uL (4.8-10.8)
[2022-07-12 03:13] LABS: INR-International Normal Ratio 1.4
[2022-07-12] MEDS ORDERED: Propofol 1,000 MG/100 ML VIAL IV PRN (03:15)
[2022-07-12] MEDS ORDERED: Propofol BOLUS 1,000 MG/100 ML VIAL IV PRN (03:15)
[2022-07-12] MEDS ORDERED: Sodium Bicarb 50 MEQ/50 ML VIAL IVP SCH ×2 (03:15→11:30)
[2022-07-12] MEDS ORDERED: Propofol 1,000 MG/100 ML VIAL IV ONE (03:16)
[2022-07-12 03:22] LABS: ALT (SGPT) 41 U/L (8-55); AST (SGOT) 120 U/L (5-34); Albumin 2.7 g/dL (3.5-5.0); Alkaline Phosphatase 238 U/L (40-110); Anion Gap 15 mmol/L (10-20); BUN (Urea Nitrogen) 38 mg/dL (8.4-25.7); Calc. Creatinine Clearance 81 mL/min (70-130); Carbon Dioxide 21 mmol/L (22-29); Chloride 111 mmol/L (98-107); Estimated GFR 70; Globulin 2.2 g/dL (2.4-3.5); Glucose 129 mg/dL (70-105); Magnesium 2.2 mg/dL (1.6-2.6); Protein, Total 4.9 g/dL (6.0-8.3); Sodium 143 mmol/L (136-145)
[2022-07-12 03:26] LABS: Band 17 % (5-11); Lymphocytes 4 % (21-51); MDiff Complete? YES; Macrocytosis MODERATE=16-30 cells (100X) (0-5/hpf); Monocytes 4 % (0-10); Neutrophil 75 % (42-75); Ovalocytes SLIGHT = 2-5 cells (100X) (0-1/hpf); Platelet Morphology Comment Appears Adequate
[2022-07-12 03:30] LABS: Phosphorus 3.6 mg/dL (2.3-4.7)
[2022-07-12] MEDS ORDERED: Furosemide 40 MG/4 ML VIAL SLOW IVP SCH (03:30)
[2022-07-12] MEDS ORDERED: Sodium Bicarbonate 150 MEQ in Dextrose 5% in Water 1,000 ML IV SCH (03:45)
[2022-07-12] MEDS: Meropenem 1 GM in Sodium Chloride 0.9% 100 ML IVPB SCH ×3 (05:25→22:08)
[2022-07-12] MEDS: Metoclopramide HCl 10 MG/2 ML VIAL IVP SCH (05:25)
[2022-07-12] MEDS: Cyanocobalamin (Vitamin B-12) 1,000 MCG TAB PO SCH (07:57)
[2022-07-12] MEDS: Folic Acid 1 MG TAB PO SCH (07:57)
[2022-07-12] MEDS: Thiamine 100 MG TAB PO SCH (07:57)
[2022-07-12] MEDS: Pantoprazole 40 MG VIAL IVP SCH ×2 (07:58→20:03)
[2022-07-12] MEDS: Multivit, Therapeutic 1 TAB PO SCH (07:58)
[2022-07-12] MEDS: pyridOXINE 50 MG (B6) TAB PO SCH (07:58)
[2022-07-12] MEDS: Heparin 5,000 UNITS/ML VIAL SC SCH ×2 (10:07→20:03)
[2022-07-12 10:51] LABS: Actual Bicarbonate (HCO3a) 24.2 mEq/L (22-28); Calcium, Ionized (arterial) 0.89 mmol/L (1.12-1.30); Potassium - ABG Lab 4.16 mmol/L (3.70-5.30)
[2022-07-12 10:57] LABS: CO2 Tension 84.6 mmHg (35.0-45.0); Puncture Site RRA; pH, Arterial 7.07 (7.35-7.45)
[2022-07-12] MEDS ORDERED: Fentanyl CADD 100 ML ONE (11:34)
[2022-07-12] MEDS: Fentanyl CADD 100 ML IV SCH (11:35)
[2022-07-12] MEDS: Vasopressin 20 UNIT, Admixture Fee 1 EACH in Sodium Chloride 0.9% 50 ML IV SCH ×2 (13:11→19:33)
[2022-07-12] MEDS ORDERED: Insulin Regular 300 UNITS/3 ML VIAL SC PRN (13:34)
[2022-07-12] MEDS: Sodium Bicarbonate 150 MEQ in Dextrose 5% in Water 1,000 ML IV SCH ×2 (14:37→22:08)
[2022-07-12] MEDS ORDERED: [UNRECOGNIZED DRUG - REMARK] IVPB PRN (16:13)
[2022-07-12 16:18] LABS: Anion Gap 18 mmol/L (10-20); BUN (Urea Nitrogen) 40 mg/dL (8.4-25.7); Calc. Creatinine Clearance 63 mL/min (70-130); Carbon Dioxide 26 mmol/L (22-29); Chloride 106 mmol/L (98-107); Estimated GFR 51; Glucose 227 mg/dL (70-105); Potassium 3.9 mmol/L (3.5-5.1); Sodium 146 mmol/L (136-145)
[2022-07-12 16:23] LABS: Calcium 5.6 mg/dL (7.8-10.44)
[2022-07-12] MEDS: Insulin Regular 300 UNITS/3 ML VIAL SC PRN ×3 (16:29→23:17)
[2022-07-12] MEDS ORDERED: CALCIUM GLUC 1GM/NS 50ML 1 GM in Premix Bag 1 BAG IVPB SCH (16:45)
[2022-07-13] MEDS: Fentanyl CADD 100 ML IV SCH ×2 (00:50→14:17)
[2022-07-13] MEDS: Vasopressin 20 UNIT, Admixture Fee 1 EACH in Sodium Chloride 0.9% 50 ML IV SCH ×3 (02:14→17:41)
[2022-07-13] MEDS: Insulin Regular 300 UNITS/3 ML VIAL SC PRN ×5 (04:10→23:50)
[2022-07-13 04:38] LABS: Lactic Acid 6.2 mmol/L (0.5-2.2)
[2022-07-13 04:41] LABS: ALT (SGPT) 39 U/L (8-55); AST (SGOT) 156 U/L (5-34); Albumin 2.2 g/dL (3.5-5.0); Alkaline Phosphatase 239 U/L (40-110); Anion Gap 18 mmol/L (10-20); BUN (Urea Nitrogen) 37 mg/dL (8.4-25.7); Bilirubin, Total 1.3 mg/dL (0.2-1.2); Calc. Creatinine Clearance 92 mL/min (70-130); Carbon Dioxide 30 mmol/L (22-29); Chloride 101 mmol/L (98-107); Estimated GFR 80; Globulin 2.1 g/dL (2.4-3.5); Glucose 176 mg/dL (70-105); Magnesium 1.8 mg/dL (1.6-2.6); Protein, Total 4.3 g/dL (6.0-8.3); Sodium 146 mmol/L (136-145)
[2022-07-13 04:47] LABS: Band 21 % (5-11); Calcium 5.9 mg/dL (7.8-10.44); Hemoglobin 9.8 g/dL (14.0-18.0); Hypochromia SLIGHT = 6-15 cells (100X) (0-5/hpf); Lymphocytes 8 % (21-51); MDiff Complete? YES; Macrocytosis SLIGHT = 6-15 cells (100X) (0-5/hpf); Mean Corpuscular HGB CONC 33.4 g/dL (32.0-36.0); Mean Corpuscular Hemoglobin 38.3 pg (27.0-31.0); Mean Platelet Volume 8.4 fL (7.4-10.4); Monocytes 4 % (0-10); Neutrophil 67 % (42-75); Phosphorus 2.7 mg/dL (2.3-4.7); Platelet Count 208 thou/uL (130-400); Platelet Morphology Comment Appears Adequate; Potassium 2.7 mmol/L (3.5-5.1); Red Blood Cell (RBC) Count 2.56 mill/uL (4.70-6.10); White Blood Cell (WBC) Count 17.7 thou/uL (4.8-10.8)
[2022-07-13] MEDS ORDERED: Calcium Gluc 4.6 MEQ/10 ML (100 MG/ML) SLOW IVP SCH (05:30)
[2022-07-13] MEDS: NOREPINEPHRINE 8 MG/250 ML-D5W 250 ML IVPB SCH ×2 (05:46→16:38)
[2022-07-13] MEDS: Sodium Bicarbonate 150 MEQ in Dextrose 5% in Water 1,000 ML IV SCH (06:35)
[2022-07-13] MEDS: Meropenem 1 GM in Sodium Chloride 0.9% 100 ML IVPB SCH ×3 (06:50→21:41)
[2022-07-13 07:01] LABS: Actual Bicarbonate (HCO3a) 30.1 mEq/L (22-28); Base Excess (BEa) 7.6 mEq/L (-2.0 to +3.0); CO2 Tension 35.2 mmHg (35.0-45.0); Calcium, Ionized (arterial) 0.87 mmol/L (1.12-1.30); O2 Tension (PaO2), arterial 72.3 mmHg (80.0-100.0); Potassium - ABG Lab 2.67 mmol/L (3.70-5.30)
[2022-07-13 07:20] LABS: pH, Arterial 7.55 (7.35-7.45)
[2022-07-13 07:21] LABS: Puncture Site RRA
[2022-07-13] MEDS: Potassium Chloride 20 MEQ in Premix Bag 1 BAG IVPB SCH ×4 (07:38→13:16)
[2022-07-13] MEDS ORDERED: Magnesium 2 GM/50 ML(in water) 2 GM in Premix Bag 1 BAG IVPB SCH (08:00)
[2022-07-13] MEDS: Heparin 5,000 UNITS/ML VIAL SC SCH ×2 (08:51→21:43)
[2022-07-13] MEDS: Pantoprazole 40 MG VIAL IVP SCH ×2 (08:51→21:26)
[2022-07-13] MEDS: Cyanocobalamin (Vitamin B-12) 1,000 MCG TAB PO SCH (08:51)
[2022-07-13] MEDS: Dexamethasone 10 MG/ML VIAL SLOW IVP SCH (08:51)
[2022-07-13] MEDS: pyridOXINE 50 MG (B6) TAB PO SCH (08:51)
[2022-07-13] MEDS: Multivit, Therapeutic 1 TAB PO SCH (08:51)
[2022-07-13] MEDS: Thiamine 100 MG TAB PO SCH (08:51)
[2022-07-13] MEDS: Folic Acid 1 MG TAB PO SCH (08:51)
[2022-07-13] MEDS ORDERED: Dexamethasone 10 MG in Sodium Chloride 0.9% 50 ML IVPB SCH (09:00)
[2022-07-13] MEDS ORDERED: CALCIUM GLUC 1GM/NS 50ML 1 GM in Premix Bag 1 BAG IVPB SCH (11:30)
[2022-07-13] MEDS: Multivitamins, Adult 10 ML, TRACE ELEMENT CONCENTRATE 1 ML in D15W-AA 5% with Lytes 2,0... IV SCH (14:18)
[2022-07-13] MEDS: Albumin 25% 25 GM/100 ML BOT IVPB SCH ×2 (15:32→21:33)
[2022-07-13 16:31] LABS: Lactic Acid 2.9 mmol/L (0.5-2.2)
[2022-07-13 16:42] LABS: ALT (SGPT) 37 U/L (8-55); AST (SGOT) 111 U/L (5-34); Albumin 2.5 g/dL (3.5-5.0); Alkaline Phosphatase 223 U/L (40-110); Anion Gap 18 mmol/L (10-20); BUN (Urea Nitrogen) 34 mg/dL (8.4-25.7); Bilirubin, Total 1.4 mg/dL (0.2-1.2); Calc. Creatinine Clearance 121 mL/min (70-130); Calcium 6.6 mg/dL (7.8-10.44); Carbon Dioxide 31 mmol/L (22-29); Chloride 99 mmol/L (98-107); Estimated GFR 102; Globulin 2.3 g/dL (2.4-3.5); Glucose 243 mg/dL (70-105); Potassium 4.5 mmol/L (3.5-5.1); Protein, Total 4.8 g/dL (6.0-8.3); Sodium 143 mmol/L (136-145)
[2022-07-13] MEDS ORDERED: Furosemide 100 MG/10 ML VIAL SLOW IVP SCH (19:45)
[2022-07-13] MEDS: Senokot S 8.6-50 MG TAB PO SCH (21:26)
[2022-07-14] MEDS: Vasopressin 20 UNIT, Admixture Fee 1 EACH in Sodium Chloride 0.9% 50 ML IV SCH ×3 (01:05→16:04)
[2022-07-14] MEDS: Fentanyl CADD 100 ML IV SCH ×2 (03:38→16:35)
[2022-07-14] MEDS: Albumin 25% 25 GM/100 ML BOT IVPB SCH ×3 (03:38→15:32)
[2022-07-14] MEDS: Insulin Regular 300 UNITS/3 ML VIAL SC PRN ×5 (04:13→20:37)
[2022-07-14 04:42] LABS: INR-International Normal Ratio 1.3; Prothrombin Time 15.9 sec (12.0-14.7)
[2022-07-14 04:43] LABS: PTT 34.6 sec (22.9-36.1)
[2022-07-14 04:57] LABS: ALT (SGPT) 28 U/L (8-55); AST (SGOT) 60 U/L (5-34); Albumin 3.1 g/dL (3.5-5.0); Alkaline Phosphatase 174 U/L (40-110); Anion Gap 18 mmol/L (10-20); BUN (Urea Nitrogen) 36 mg/dL (8.4-25.7); Calc. Creatinine Clearance 118 mL/min (70-130); Calcium 7.3 mg/dL (7.8-10.44); Carbon Dioxide 32 mmol/L (22-29); Chloride 98 mmol/L (98-107); Estimated GFR 101; Globulin 2.2 g/dL (2.4-3.5); Glucose 322 mg/dL (70-105); Protein, Total 5.3 g/dL (6.0-8.3); Sodium 144 mmol/L (136-145)
[2022-07-14 05:10] LABS: Band 1 % (5-11); Eosinophils 1 % (0-10); Lymphocytes 3 % (21-51); MDiff Complete? YES; Macrocytosis MODERATE=16-30 cells (100X) (0-5/hpf); Mean Corpuscular HGB CONC 33.4 g/dL (32.0-36.0); Monocytes 7 % (0-10); Neutrophil 88 % (42-75); Ovalocytes SLIGHT = 2-5 cells (100X) (0-1/hpf); Platelet Count 185 thou/uL (130-400); Platelet Morphology Comment Appears Adequate; RBC Distribution Width 13.1 % (11.5-14.5); White Blood Cell (WBC) Count 16.6 thou/uL (4.8-10.8)
[2022-07-14] MEDS: Meropenem 1 GM in Sodium Chloride 0.9% 100 ML IVPB SCH ×3 (06:08→22:06)
[2022-07-14 06:15] LABS: Magnesium 1.9 mg/dL (1.6-2.6); Phosphorus 3.7 mg/dL (2.3-4.7)
[2022-07-14] MEDS ORDERED: Furosemide 40 MG/4 ML VIAL SLOW IVP SCH (07:00)
[2022-07-14 07:44] LABS: Actual Bicarbonate (HCO3a) 36.3 mEq/L (22-28); Analyzer IN Cardio OR; Base Excess (BEa) 9.9 mEq/L (-2.0 to +3.0); CO2 Tension 59.4 mmHg (35.0-45.0); Calcium, Ionized (arterial) 0.94 mmol/L (1.12-1.30); Carboxyhemoglobin (COHb) 0.3 gm% (0.0-3.0); Hemoglobin (Hb) 10.5 g/dL (14.0-18.0); O2 Tension (PaO2), arterial 65.7 mmHg (80.0-100.0); Potassium - ABG Lab 3.87 mmol/L (3.70-5.30)
[2022-07-14] MEDS ORDERED: Magnesium 2 GM/50 ML(in water) 2 GM in Premix Bag 1 BAG IVPB SCH (08:00)
[2022-07-14 08:06] LABS: Puncture Site Arterial Line
[2022-07-14] MEDS: Pantoprazole 40 MG VIAL IVP SCH ×2 (08:54→20:02)
[2022-07-14] MEDS: pyridOXINE 50 MG (B6) TAB PO SCH (08:54)
[2022-07-14] MEDS: Heparin 5,000 UNITS/ML VIAL SC SCH ×2 (08:54→20:03)
[2022-07-14] MEDS: Senokot S 8.6-50 MG TAB PO SCH ×2 (08:54→20:03)
[2022-07-14] MEDS: Thiamine 100 MG TAB PO SCH (08:54)
[2022-07-14] MEDS: Cyanocobalamin (Vitamin B-12) 1,000 MCG TAB PO SCH (08:54)
[2022-07-14] MEDS: Dexamethasone 10 MG/ML VIAL SLOW IVP SCH (08:54)
[2022-07-14] MEDS: Folic Acid 1 MG TAB PO SCH (08:54)
[2022-07-14] MEDS: Vecuronium 10 MG VIAL IV PRN ×5 (09:55→22:10)
[2022-07-14] MEDS ORDERED: Insulin Glargine 30 UNITS/0.3 ML VIAL SC SCH (12:15)
[2022-07-14] MEDS: Furosemide 40 MG/4 ML VIAL SLOW IVP SCH (13:41)
[2022-07-14] MEDS: Multivitamins, Adult 10 ML, TRACE ELEMENT CONCENTRATE 1 ML in D15W-AA 5% with Lytes 2,0... IV SCH (13:47)
[2022-07-14 15:53] LABS: Anion Gap 14 mmol/L (10-20); BUN (Urea Nitrogen) 41 mg/dL (8.4-25.7); Calc. Creatinine Clearance 109 mL/min (70-130); Calcium 7.5 mg/dL (7.8-10.44); Carbon Dioxide 34 mmol/L (22-29); Chloride 98 mmol/L (98-107); Estimated GFR 91; Glucose 403 mg/dL (70-105); Potassium 4.3 mmol/L (3.5-5.1); Sodium 142 mmol/L (136-145)
[2022-07-14] MEDS ORDERED: Sterile Water 10 ML ONE (19:49)
[2022-07-15] MEDS: Midazolam HCl 2 mg/2 ml Vial SLOW IVP PRN (00:50)
[2022-07-15] MEDS: Vecuronium 10 MG VIAL IV PRN ×4 (00:51→20:44)
[2022-07-15] MEDS: Insulin Regular 300 UNITS/3 ML VIAL SC PRN ×6 (01:07→20:50)
[2022-07-15 04:59] LABS: Phosphorus 4.1 mg/dL (2.3-4.7)
[2022-07-15 05:02] LABS: ALT (SGPT) 17 U/L (8-55); AST (SGOT) 37 U/L (5-34); Albumin 3.2 g/dL (3.5-5.0); Alkaline Phosphatase 137 U/L (40-110); Anion Gap 17 mmol/L (10-20); BUN (Urea Nitrogen) 47 mg/dL (8.4-25.7); Bilirubin, Total 0.8 mg/dL (0.2-1.2); Calc. Creatinine Clearance 115 mL/min (70-130); Carbon Dioxide 34 mmol/L (22-29); Chloride 99 mmol/L (98-107); Estimated GFR 96; Globulin 2.2 g/dL (2.4-3.5); Glucose 257 mg/dL (70-105); Magnesium 2.2 mg/dL (1.6-2.6); Potassium 4.7 mmol/L (3.5-5.1); Protein, Total 5.4 g/dL (6.0-8.3); Sodium 145 mmol/L (136-145)
[2022-07-15] MEDS ORDERED: Fentanyl CADD 100 ML ONE (05:06)
[2022-07-15] MEDS: Furosemide 40 MG/4 ML VIAL SLOW IVP SCH ×2 (05:09→14:02)
[2022-07-15] MEDS: Meropenem 1 GM in Sodium Chloride 0.9% 100 ML IVPB SCH ×3 (05:09→21:26)
[2022-07-15 05:18] LABS: Band 7 % (5-11); Hemoglobin 8.7 g/dL (14.0-18.0); Hypochromia SLIGHT = 6-15 cells (100X) (0-5/hpf); Lymphocytes 5 % (21-51); MDiff Complete? YES; Macrocytosis SLIGHT = 6-15 cells (100X) (0-5/hpf); Mean Corpuscular HGB CONC 32.1 g/dL (32.0-36.0); Mean Corpuscular Hemoglobin 37.8 pg (27.0-31.0); Mean Platelet Volume 10.1 fL (7.4-10.4); Monocytes 13 % (0-10); Neutrophil 75 % (42-75); Platelet Count 174 thou/uL (130-400); Platelet Morphology Comment Appears Adequate; RBC Distribution Width 13.5 % (11.5-14.5); Red Blood Cell (RBC) Count 2.29 mill/uL (4.70-6.10); White Blood Cell (WBC) Count 15.1 thou/uL (4.8-10.8)
[2022-07-15] MEDS: Fentanyl CADD 100 ML IV SCH ×2 (05:43→19:03)
[2022-07-15] MEDS ORDERED: Furosemide 40 MG/4 ML VIAL SLOW IVP SCH (07:30)
[2022-07-15] MEDS ORDERED: Albumin 25% 25 GM/100 ML BOT IVPB SCH (07:30)
[2022-07-15 08:01] LABS: Actual Bicarbonate (HCO3a) 36.7 mEq/L (22-28); CO2 Tension 47.1 mmHg (35.0-45.0); Calcium, Ionized (arterial) 1.02 mmol/L (1.12-1.30); O2 Tension (PaO2), arterial 81.9 mmHg (80.0-100.0); Potassium - ABG Lab 3.87 mmol/L (3.70-5.30); pH, Arterial 7.51 (7.35-7.45)
[2022-07-15 08:05] LABS: Puncture Site Arterial Line
[2022-07-15 08:06] LABS: ALV-art Gradient 429.625 mmHg (0-20)
[2022-07-15] MEDS ORDERED: Insulin Glargine 30 UNITS/0.3 ML VIAL SC SCH (09:00)
[2022-07-15] MEDS: Folic Acid 1 MG TAB PO SCH (09:08)
[2022-07-15] MEDS: Dexamethasone 10 MG/ML VIAL SLOW IVP SCH (09:08)
[2022-07-15] MEDS: Senokot S 8.6-50 MG TAB PO SCH ×2 (09:08→21:26)
[2022-07-15] MEDS: pyridOXINE 50 MG (B6) TAB PO SCH (09:08)
[2022-07-15] MEDS: Thiamine 100 MG TAB PO SCH (09:08)
[2022-07-15] MEDS: Heparin 5,000 UNITS/ML VIAL SC SCH ×2 (09:08→20:41)
[2022-07-15] MEDS: Cyanocobalamin (Vitamin B-12) 1,000 MCG TAB PO SCH (09:08)
[2022-07-15] MEDS: Pantoprazole 40 MG VIAL IVP SCH ×2 (09:09→20:43)
[2022-07-15] MEDS ORDERED: SODIUM ACETATE IV SCH (14:00)
[2022-07-15] MEDS ORDERED: POTASSIUM CHLORIDE IV SCH (14:00)
[2022-07-15] MEDS ORDERED: SODIUM CHLORIDE IV SCH (14:00)
[2022-07-15] MEDS ORDERED: [UNRECOGNIZED DRUG - OTHER] IV SCH (14:00)
[2022-07-15] MEDS: Insulin Glargine 30 UNITS/0.3 ML VIAL SC SCH (20:42)
[2022-07-16] MEDS: Insulin Regular 300 UNITS/3 ML VIAL SC PRN ×5 (00:11→16:31)
[2022-07-16] MEDS: Vecuronium 10 MG VIAL IV PRN (02:23)
[2022-07-16 04:58] LABS: ALT (SGPT) 18 U/L (8-55); AST (SGOT) 29 U/L (5-34); Alkaline Phosphatase 121 U/L (40-110); Anion Gap 14 mmol/L (10-20); BUN (Urea Nitrogen) 63 mg/dL (8.4-25.7); Bilirubin, Total 0.7 mg/dL (0.2-1.2); Calc. Creatinine Clearance 124 mL/min (70-130); Calcium 8.6 mg/dL (7.8-10.44); Carbon Dioxide 37 mmol/L (22-29); Chloride 102 mmol/L (98-107); Estimated GFR 101; Globulin 2.1 g/dL (2.4-3.5); Glucose 200 mg/dL (70-105); Phosphorus 3.1 mg/dL (2.3-4.7); Potassium 4.1 mmol/L (3.5-5.1); Protein, Total 5.1 g/dL (6.0-8.3); Sodium 149 mmol/L (136-145)
[2022-07-16 05:05] LABS: Band 7 % (5-11); Hemoglobin 8.6 g/dL (14.0-18.0); Lymphocytes 4 % (21-51); MDiff Complete? YES; Macrocytosis MODERATE=16-30 cells (100X) (0-5/hpf); Mean Corpuscular Hemoglobin 37.1 pg (27.0-31.0); Mean Platelet Volume 9.7 fL (7.4-10.4); Monocytes 4 % (0-10); Neutrophil 85 % (42-75); Ovalocytes SLIGHT = 2-5 cells (100X) (0-1/hpf); Platelet Count 227 thou/uL (130-400); Platelet Morphology Comment Appears Adequate; RBC Distribution Width 13.4 % (11.5-14.5); Red Blood Cell (RBC) Count 2.31 mill/uL (4.70-6.10); Target Cells SLIGHT = 2-5 cells (100X) (0-1/hpf)
[2022-07-16] MEDS: Furosemide 40 MG/4 ML VIAL SLOW IVP SCH (05:23)
[2022-07-16] MEDS: Meropenem 1 GM in Sodium Chloride 0.9% 100 ML IVPB SCH ×3 (05:25→21:28)
[2022-07-16 07:33] LABS: Actual Bicarbonate (HCO3a) 39.9 mEq/L (22-28); Base Excess (BEa) 15.2 mEq/L (-2.0 to +3.0); CO2 Tension 50.7 mmHg (35.0-45.0); Calcium, Ionized (arterial) 1.13 mmol/L (1.12-1.30); Carboxyhemoglobin (COHb) 0.3 gm% (0.0-3.0); Hemoglobin (Hb) 9.8 g/dL (14.0-18.0); O2 Tension (PaO2), arterial 112.6 mmHg (80.0-100.0); Potassium - ABG Lab 3.84 mmol/L (3.70-5.30); Puncture Site Arterial Line; pH, Arterial 7.51 (7.35-7.45)
[2022-07-16 07:34] LABS: ALV-art Gradient 323.125 mmHg (0-20)
[2022-07-16] MEDS ORDERED: Fentanyl CADD 100 ML ONE (07:40)
[2022-07-16] MEDS: Heparin 5,000 UNITS/ML VIAL SC SCH ×2 (07:49→20:00)
[2022-07-16] MEDS: Fentanyl CADD 100 ML IV SCH (07:49)
[2022-07-16] MEDS: Folic Acid 1 MG TAB PO SCH (07:53)
[2022-07-16] MEDS: Senokot S 8.6-50 MG TAB PO SCH ×2 (07:53→20:00)
[2022-07-16] MEDS: Thiamine 100 MG TAB PO SCH (07:53)
[2022-07-16] MEDS: Pantoprazole 40 MG VIAL IVP SCH ×2 (07:54→20:01)
[2022-07-16] MEDS: Dexamethasone 10 MG/ML VIAL SLOW IVP SCH ×2 (07:54→09:10)
[2022-07-16] MEDS: Cyanocobalamin (Vitamin B-12) 1,000 MCG TAB PO SCH (07:54)
[2022-07-16] MEDS: pyridOXINE 50 MG (B6) TAB PO SCH (07:55)
[2022-07-16] MEDS ORDERED: Magnesium 2 GM/50 ML(in water) 2 GM in Premix Bag 1 BAG IVPB SCH (08:00)
[2022-07-16] MEDS ORDERED: Insulin Glargine 30 UNITS/0.3 ML VIAL SC SCH (09:00)
[2022-07-16] MEDS: CALCIUM CHLORIDE IV SCH (13:36)
[2022-07-16] MEDS: [UNRECOGNIZED DRUG - OTHER] IV SCH (13:36)
[2022-07-16] MEDS: SODIUM CHLORIDE IV SCH (13:36)
[2022-07-16] MEDS: POTASSIUM CHLORIDE IV SCH (13:36)
[2022-07-16] MEDS: Insulin Glargine 30 UNITS/0.3 ML VIAL SC SCH (20:00)
[2022-07-17] MEDS: Insulin Regular 300 UNITS/3 ML VIAL SC PRN ×5 (00:26→20:45)
[2022-07-17 04:28] LABS: ALT (SGPT) 28 U/L (8-55); AST (SGOT) 40 U/L (5-34); Albumin 2.8 g/dL (3.5-5.0); Alkaline Phosphatase 129 U/L (40-110); BUN (Urea Nitrogen) 63 mg/dL (8.4-25.7); Bilirubin, Total 0.7 mg/dL (0.2-1.2); Calc. Creatinine Clearance 149 mL/min (70-130); Calcium 8.9 mg/dL (7.8-10.44); Estimated GFR 108; Globulin 2.2 g/dL (2.4-3.5); Glucose 172 mg/dL (70-105)
[2022-07-17 04:37] LABS: Anion Gap 16 mmol/L (10-20); Carbon Dioxide 34 mmol/L (22-29); Chloride 105 mmol/L (98-107); Potassium 3.9 mmol/L (3.5-5.1); Sodium 151 mmol/L (136-145)
[2022-07-17] MEDS: Meropenem 1 GM in Sodium Chloride 0.9% 100 ML IVPB SCH ×3 (05:39→21:49)
[2022-07-17 06:42] LABS: Band 10 % (5-11); Hemoglobin 9.2 g/dL (14.0-18.0); Lymphocytes 8 % (21-51); MDiff Complete? YES; Mean Corpuscular HGB CONC 32.5 g/dL (32.0-36.0); Mean Corpuscular Hemoglobin 37.4 pg (27.0-31.0); Mean Platelet Volume 9.9 fL (7.4-10.4); Monocytes 4 % (0-10); Neutrophil 78 % (42-75); Platelet Count 282 thou/uL (130-400); RBC Distribution Width 13.9 % (11.5-14.5); Red Blood Cell (RBC) Count 2.47 mill/uL (4.70-6.10); White Blood Cell (WBC) Count 15.7 thou/uL (4.8-10.8)
[2022-07-17 07:52] LABS: Actual Bicarbonate (HCO3a) 36.9 mEq/L (22-28); Base Excess (BEa) 11.4 mEq/L (-2.0 to +3.0); CO2 Tension 51.4 mmHg (35.0-45.0); Calcium, Ionized (arterial) 1.19 mmol/L (1.12-1.30); Carboxyhemoglobin (COHb) 0.1 gm% (0.0-3.0); Hemoglobin (Hb) 13.8 g/dL (14.0-18.0); Potassium - ABG Lab 3.62 mmol/L (3.70-5.30); pH, Arterial 7.47 (7.35-7.45)
[2022-07-17] MEDS: Dextrose 5% in Water 1,000 ML IV SCH ×2 (07:58→21:49)
[2022-07-17] MEDS: Senokot S 8.6-50 MG TAB PO SCH ×2 (08:01→20:46)
[2022-07-17] MEDS: Folic Acid 1 MG TAB PO SCH (08:01)
[2022-07-17] MEDS: Pantoprazole 40 MG VIAL IVP SCH ×2 (08:01→20:49)
[2022-07-17] MEDS: Heparin 5,000 UNITS/ML VIAL SC SCH ×2 (08:03→20:46)
[2022-07-17] MEDS: Thiamine 100 MG TAB PO SCH (08:03)
[2022-07-17] MEDS: Dexamethasone 10 MG/ML VIAL SLOW IVP SCH (08:12)
[2022-07-17] MEDS: Cyanocobalamin (Vitamin B-12) 1,000 MCG TAB PO SCH (08:12)
[2022-07-17] MEDS: pyridOXINE 50 MG (B6) TAB PO SCH (08:12)
[2022-07-17 08:14] LABS: O2 Tension (PaO2), arterial 59.4 mmHg (80.0-100.0); Puncture Site RRA
[2022-07-17] MEDS ORDERED: Insulin Glargine 30 UNITS/0.3 ML VIAL SC SCH (09:00)
[2022-07-17] MEDS: SODIUM CHLORIDE IV SCH (14:38)
[2022-07-17] MEDS: [UNRECOGNIZED DRUG - OTHER] IV SCH (14:38)
[2022-07-17] MEDS: CALCIUM CHLORIDE IV SCH (14:38)
[2022-07-17] MEDS: POTASSIUM CHLORIDE IV SCH (14:38)
[2022-07-17] MEDS: Insulin Glargine 30 UNITS/0.3 ML VIAL SC SCH (20:46)
[2022-07-18] MEDS: Fentanyl CADD 100 ML IV SCH (00:17)
[2022-07-18] MEDS: Morphine 2 MG/ML VIAL SLOW IVP PRN (02:46)
[2022-07-18] MEDS: Meropenem 1 GM in Sodium Chloride 0.9% 100 ML IVPB SCH ×3 (05:04→21:26)
[2022-07-18 05:08] LABS: Phosphorus 2.6 mg/dL (2.3-4.7)
[2022-07-18 05:09] LABS: ALT (SGPT) 52 U/L (8-55); AST (SGOT) 66 U/L (5-34); Albumin 2.3 g/dL (3.5-5.0); Alkaline Phosphatase 124 U/L (40-110); Anion Gap 8 mmol/L (10-20); BUN (Urea Nitrogen) 43 mg/dL (8.4-25.7); Calc. Creatinine Clearance 140 mL/min (70-130); Calcium 8.1 mg/dL (7.8-10.44); Carbon Dioxide 35 mmol/L (22-29); Chloride 103 mmol/L (98-107); Estimated GFR 106; Globulin 1.9 g/dL (2.4-3.5); Magnesium 1.7 mg/dL (1.6-2.6); Potassium 3.4 mmol/L (3.5-5.1); Protein, Total 4.2 g/dL (6.0-8.3); Sodium 143 mmol/L (136-145)
[2022-07-18 05:55] LABS: Band 13 % (5-11); Hemoglobin 9.1 g/dL (14.0-18.0); Lymphocytes 4 % (21-51); MDiff Complete? YES; Mean Platelet Volume 9.7 fL (7.4-10.4); Monocytes 2 % (0-10); Neutrophil 81 % (42-75); Nucleated RBC 1 % (0); Platelet Count 272 thou/uL (130-400); RBC Distribution Width 13.9 % (11.5-14.5); Red Blood Cell (RBC) Count 2.41 mill/uL (4.70-6.10); White Blood Cell (WBC) Count 17.3 thou/uL (4.8-10.8)
[2022-07-18] MEDS ORDERED: Magnesium 2 GM/50 ML(in water) 2 GM in Premix Bag 1 BAG IVPB SCH (06:00)
[2022-07-18 07:17] LABS: Glucose 112 mg/dL (70-105)
[2022-07-18 07:49] LABS: Actual Bicarbonate (HCO3a) 31.4 mEq/L (22-28); CO2 Tension 43.5 mmHg (35.0-45.0); Carboxyhemoglobin (COHb) 0.2 gm% (0.0-3.0); Hemoglobin (Hb) 13.3 g/dL (14.0-18.0); O2 Tension (PaO2), arterial 63.4 mmHg (80.0-100.0); Potassium - ABG Lab 3.44 mmol/L (3.70-5.30); pH, Arterial 7.48 (7.35-7.45)
[2022-07-18 07:55] LABS: ALV-art Gradient 167.425 mmHg (0-20); Puncture Site RRA
[2022-07-18] MEDS ORDERED: Potassium Chloride 40 MEQ in Premix Bag 1 BAG IVPB SCH (08:00)
[2022-07-18] MEDS: Heparin 5,000 UNITS/ML VIAL SC SCH ×2 (09:43→20:59)
[2022-07-18] MEDS: Pantoprazole 40 MG VIAL IVP SCH ×2 (09:43→20:59)
[2022-07-18] MEDS: Dexamethasone 10 MG/ML VIAL SLOW IVP SCH (09:44)
[2022-07-18] MEDS: pyridOXINE 50 MG (B6) TAB PO SCH (09:46)
[2022-07-18] MEDS: Senokot S 8.6-50 MG TAB PO SCH ×2 (09:46→20:59)
[2022-07-18] MEDS: Thiamine 100 MG TAB PO SCH (09:46)
[2022-07-18] MEDS: Cyanocobalamin (Vitamin B-12) 1,000 MCG TAB PO SCH (09:46)
[2022-07-18] MEDS: Folic Acid 1 MG TAB PO SCH (09:46)
[2022-07-18] MEDS: Insulin Glargine 30 UNITS/0.3 ML VIAL SC SCH (10:17)
[2022-07-18] MEDS: Dextrose 5% in Water 1,000 ML IV PRN (11:16)
[2022-07-18] MEDS: CALCIUM CHLORIDE IV SCH (14:28)
[2022-07-18] MEDS: SODIUM CHLORIDE IV SCH (14:28)
[2022-07-18] MEDS: [UNRECOGNIZED DRUG - OTHER] IV SCH (14:28)
[2022-07-18] MEDS: POTASSIUM CHLORIDE IV SCH (14:28)
[2022-07-18] MEDS: Midazolam HCl 2 mg/2 ml Vial SLOW IVP PRN (20:58)
[2022-07-18] MEDS ORDERED: Insulin Glargine 30 UNITS/0.3 ML VIAL SC SCH (21:00)
[2022-07-19] MEDS: Dextrose 5% in Water 1,000 ML IV PRN (00:35)
[2022-07-19] MEDS: Fentanyl CADD 100 ML IV SCH (00:38)
[2022-07-19] MEDS: Morphine 2 MG/ML VIAL SLOW IVP PRN (00:52)
[2022-07-19 04:34] LABS: Band 5 % (5-11); Eosinophils 4 % (0-10); Hemoglobin 7.7 g/dL (14.0-18.0); Lymphocytes 6 % (21-51); MDiff Complete? YES; Macrocytosis SLIGHT = 6-15 cells (100X) (0-5/hpf); Mean Corpuscular HGB CONC 32.9 g/dL (32.0-36.0); Mean Corpuscular Hemoglobin 37.9 pg (27.0-31.0); Mean Platelet Volume 9.4 fL (7.4-10.4); Monocytes 3 % (0-10); Neutrophil 82 % (42-75); Platelet Count 268 thou/uL (130-400); RBC Distribution Width 13.6 % (11.5-14.5); Red Blood Cell (RBC) Count 2.04 mill/uL (4.70-6.10); White Blood Cell (WBC) Count 20.1 thou/uL (4.8-10.8)
[2022-07-19 04:43] LABS: ALT (SGPT) 118 U/L (8-55); AST (SGOT) 126 U/L (5-34); Albumin 2.3 g/dL (3.5-5.0); Alkaline Phosphatase 151 U/L (40-110); Anion Gap 11 mmol/L (10-20); BUN (Urea Nitrogen) 38 mg/dL (8.4-25.7); Bilirubin, Total 1.7 mg/dL (0.2-1.2); Calc. Creatinine Clearance 168 mL/min (70-130); Calcium 8.2 mg/dL (7.8-10.44); Carbon Dioxide 33 mmol/L (22-29); Chloride 106 mmol/L (98-107); Estimated GFR 112; Globulin 2.1 g/dL (2.4-3.5); Glucose 117 mg/dL (70-105); Potassium 3.6 mmol/L (3.5-5.1); Protein, Total 4.4 g/dL (6.0-8.3); Sodium 146 mmol/L (136-145)
[2022-07-19] MEDS: Meropenem 1 GM in Sodium Chloride 0.9% 100 ML IVPB SCH ×3 (05:42→21:10)
[2022-07-19 07:19] LABS: Actual Bicarbonate (HCO3a) 32.8 mEq/L (22-28); CO2 Tension 41.9 mmHg (35.0-45.0); Calcium, Ionized (arterial) 1.17 mmol/L (1.12-1.30); Carboxyhemoglobin (COHb) 0.3 gm% (0.0-3.0); Hemoglobin (Hb) 8.6 g/dL (14.0-18.0); Potassium - ABG Lab 3.49 mmol/L (3.70-5.30); pH, Arterial 7.51 (7.35-7.45)
[2022-07-19 07:20] LABS: Puncture Site RRA
[2022-07-19 07:21] LABS: ALV-art Gradient 145.825 mmHg (0-20)
[2022-07-19 08:28] LABS: Magnesium 1.7 mg/dL (1.6-2.6); Phosphorus 3.5 mg/dL (2.3-4.7)
[2022-07-19] MEDS: Dexamethasone 10 MG/ML VIAL SLOW IVP SCH (09:16)
[2022-07-19] MEDS: Heparin 5,000 UNITS/ML VIAL SC SCH ×2 (09:18→21:08)
[2022-07-19] MEDS: Pantoprazole 40 MG VIAL IVP SCH ×2 (09:18→21:08)
[2022-07-19] MEDS ORDERED: Furosemide 40 MG/4 ML VIAL IVP SCH (10:32)
[2022-07-19] MEDS: Folic Acid 1 MG TAB PO SCH (10:55)
[2022-07-19] MEDS: Insulin Regular 300 UNITS/3 ML VIAL SC PRN ×2 (12:08→16:47)
[2022-07-19] MEDS ORDERED: Fentanyl CADD 100 ML ONE (14:47)
[2022-07-19] MEDS: CALCIUM CHLORIDE IV SCH (14:52)
[2022-07-19] MEDS: SODIUM CHLORIDE IV SCH (14:52)
[2022-07-19] MEDS: POTASSIUM CHLORIDE IV SCH (14:52)
[2022-07-19] MEDS: [UNRECOGNIZED DRUG - OTHER] IV SCH (14:52)
[2022-07-19] MEDS: Insulin Glargine 30 UNITS/0.3 ML VIAL SC SCH (21:10)
[2022-07-19] MEDS ORDERED: Magnesium 2 GM/50 ML(in water) 2 GM in Premix Bag 1 BAG IVPB SCH (21:15)
[2022-07-20 05:02] LABS: Phosphorus 3.3 mg/dL (2.3-4.7)
[2022-07-20 05:11] LABS: ALT (SGPT) 119 U/L (8-55); AST (SGOT) 104 U/L (5-34); Albumin 2.2 g/dL (3.5-5.0); Alkaline Phosphatase 159 U/L (40-110); Anion Gap 11 mmol/L (10-20); BUN (Urea Nitrogen) 33 mg/dL (8.4-25.7); Bilirubin, Total 1.4 mg/dL (0.2-1.2); Calc. Creatinine Clearance 193 mL/min (70-130); Calcium 8.2 mg/dL (7.8-10.44); Carbon Dioxide 31 mmol/L (22-29); Chloride 105 mmol/L (98-107); Estimated GFR 116; Globulin 2.3 g/dL (2.4-3.5); Glucose 150 mg/dL (70-105); Lipase 29 U/L (8-78); Magnesium 1.9 mg/dL (1.6-2.6); Potassium 3.5 mmol/L (3.5-5.1); Protein, Total 4.5 g/dL (6.0-8.3); Sodium 143 mmol/L (136-145)
[2022-07-20 05:32] LABS: Band 10 % (5-11); Hemoglobin 8.4 g/dL (14.0-18.0); Lymphocytes 6 % (21-51); MDiff Complete? YES; Mean Corpuscular HGB CONC 34.1 g/dL (32.0-36.0); Mean Corpuscular Hemoglobin 39.3 pg (27.0-31.0); Mean Platelet Volume 9.9 fL (7.4-10.4); Monocytes 3 % (0-10); Neutrophil 81 % (42-75); Platelet Count 229 thou/uL (130-400); RBC Distribution Width 13.5 % (11.5-14.5); Red Blood Cell (RBC) Count 2.14 mill/uL (4.70-6.10); White Blood Cell (WBC) Count 15.4 thou/uL (4.8-10.8)
[2022-07-20] MEDS: Meropenem 1 GM in Sodium Chloride 0.9% 100 ML IVPB SCH ×3 (06:22→21:07)
[2022-07-20 06:56] LABS: Actual Bicarbonate (HCO3a) 31.2 mEq/L (22-28); Base Excess (BEa) 7.2 mEq/L (-2.0 to +3.0); CO2 Tension 41.9 mmHg (35.0-45.0); Calcium, Ionized (arterial) 1.15 mmol/L (1.12-1.30); Carboxyhemoglobin (COHb) 0.3 gm% (0.0-3.0); Hemoglobin (Hb) 9.2 g/dL (14.0-18.0); O2 Tension (PaO2), arterial 92.9 mmHg (80.0-100.0); Potassium - ABG Lab 3.39 mmol/L (3.70-5.30); pH, Arterial 7.49 (7.35-7.45)
[2022-07-20 07:11] LABS: Puncture Site RRA
[2022-07-20 07:12] LABS: ALV-art Gradient 139.925 mmHg (0-20)
[2022-07-20] MEDS ORDERED: Magnesium 2 GM/50 ML(in water) 2 GM in Premix Bag 1 BAG IVPB SCH (08:00)
[2022-07-20] MEDS ORDERED: Potassium Chloride 40 MEQ in Premix Bag 1 BAG IVPB SCH (09:00)
[2022-07-20] MEDS ORDERED: Furosemide 40 MG/4 ML VIAL SLOW IVP SCH (09:00)
[2022-07-20] MEDS: Heparin 5,000 UNITS/ML VIAL SC SCH ×2 (09:04→21:06)
[2022-07-20] MEDS: Dexamethasone 10 MG/ML VIAL SLOW IVP SCH (09:04)
[2022-07-20] MEDS: Pantoprazole 40 MG VIAL IVP SCH ×2 (09:05→21:07)
[2022-07-20] MEDS: Folic Acid 1 MG TAB PO SCH (09:08)
[2022-07-20] MEDS ORDERED: Fentanyl CADD 0 ML ONE (10:50)
[2022-07-20] MEDS ORDERED: Fentanyl CADD 100 ML ONE (13:21)
[2022-07-20] MEDS: Fentanyl CADD 100 ML IV SCH (13:35)
[2022-07-20] MEDS: Furosemide 100 MG/10 ML VIAL SLOW IVP SCH (13:44)
[2022-07-20] MEDS: POTASSIUM CHLORIDE IV SCH (14:13)
[2022-07-20] MEDS: [UNRECOGNIZED DRUG - OTHER] IV SCH (14:13)
[2022-07-20] MEDS: CALCIUM CHLORIDE IV SCH (14:13)
[2022-07-20] MEDS: SODIUM CHLORIDE IV SCH (14:13)
[2022-07-20] MEDS: Insulin Glargine 30 UNITS/0.3 ML VIAL SC SCH (21:07)
[2022-07-21 05:12] LABS: #Eosinphils 0.1 thou/uL (0.0-0.7); #Lymphocytes 1.9 thou/uL (1.20-3.40); #Monocytes 1.5 thou/uL (0.11-0.59); #Neutrophils 11.9 thou/uL (1.40-6.50); %Basophils 0.1 % (0.0-1.0); %Eosinophils 0.8 % (0.0-10.0); %Lymphocytes 12.1 % (21.0-51.0); %Monocytes 9.7 % (0.0-10.0); %Neutrophils 77.3 % (42.0-75.0); Mean Corpuscular HGB CONC 32.8 g/dL (32.0-36.0); Mean Corpuscular Hemoglobin 37.3 pg (27.0-31.0); Mean Platelet Volume 9.6 fL (7.4-10.4); Platelet Count 285 thou/uL (130-400); RBC Distribution Width 13.4 % (11.5-14.5); Red Blood Cell (RBC) Count 2.15 mill/uL (4.70-6.10); White Blood Cell (WBC) Count 15.4 thou/uL (4.8-10.8)
[2022-07-21 05:35] LABS: ALT (SGPT) 90 U/L (8-55); AST (SGOT) 67 U/L (5-34); Albumin 2.4 g/dL (3.5-5.0); Alkaline Phosphatase 165 U/L (40-110); Anion Gap 11 mmol/L (10-20); BUN (Urea Nitrogen) 29 mg/dL (8.4-25.7); Bilirubin, Total 0.9 mg/dL (0.2-1.2); Calc. Creatinine Clearance 178 mL/min (70-130); Calcium 8.3 mg/dL (7.8-10.44); Carbon Dioxide 31 mmol/L (22-29); Chloride 106 mmol/L (98-107); Estimated GFR 113; Globulin 2.4 g/dL (2.4-3.5); Glucose 112 mg/dL (70-105); Magnesium 1.7 mg/dL (1.6-2.6); Potassium 3.4 mmol/L (3.5-5.1); Protein, Total 4.8 g/dL (6.0-8.3); Sodium 145 mmol/L (136-145)
[2022-07-21] MEDS: Furosemide 100 MG/10 ML VIAL SLOW IVP SCH (06:25)
[2022-07-21] MEDS ORDERED: Fentanyl BOLUS 250 ML IVPB PRN (07:45)
[2022-07-21] MEDS ORDERED: Potassium Chloride 40 MEQ in Premix Bag 1 BAG IVPB SCH (09:00)
[2022-07-21] MEDS ORDERED: Magnesium 2 GM/50 ML(in water) 2 GM in Premix Bag 1 BAG IVPB SCH (09:00)
[2022-07-21] MEDS ORDERED: Albumin 25% 25 GM/100 ML BOT IVPB SCH (09:18)
[2022-07-21] MEDS: Dexamethasone 10 MG/ML VIAL SLOW IVP SCH (09:55)
[2022-07-21] MEDS ORDERED: LYTES IN TPN IVPB PRN (10:00)
[2022-07-21] MEDS: Heparin 5,000 UNITS/ML VIAL SC SCH ×2 (10:00→21:19)
[2022-07-21] MEDS: Pantoprazole 40 MG VIAL IVP SCH ×2 (10:06→21:20)
[2022-07-21] MEDS: Folic Acid 1 MG TAB PO SCH (10:07)
[2022-07-21] MEDS: Albumin 25% 25 GM/100 ML BOT IVPB SCH ×2 (12:19→18:02)
[2022-07-21] MEDS ORDERED: MAGNESIUM SULFATE IV SCH (14:00)
[2022-07-21] MEDS ORDERED: MULTIVITAMINS IV SCH (14:00)
[2022-07-21] MEDS ORDERED: [UNRECOGNIZED DRUG - OTHER] IV SCH (14:00)
[2022-07-21] MEDS: Fentanyl CADD 100 ML IV SCH (15:11)
[2022-07-21] MEDS: Insulin Regular 300 UNITS/3 ML VIAL SC PRN ×2 (17:51→21:20)
[2022-07-21] MEDS ORDERED: Insulin Glargine 30 UNITS/0.3 ML VIAL SC SCH (21:00)
[2022-07-22] MEDS: Albumin 25% 25 GM/100 ML BOT IVPB SCH ×2 (00:58→06:13)
[2022-07-22 04:54] LABS: #Eosinphils 0.2 thou/uL (0.0-0.7); #Lymphocytes 2.1 thou/uL (1.20-3.40); #Monocytes 1.5 thou/uL (0.11-0.59); #Neutrophils 11.2 thou/uL (1.40-6.50); %Basophils 0.1 % (0.0-1.0); %Eosinophils 1.3 % (0.0-10.0); %Monocytes 9.7 % (0.0-10.0); Hemoglobin 7.5 g/dL (14.0-18.0); Mean Corpuscular HGB CONC 32.3 g/dL (32.0-36.0); Mean Corpuscular Hemoglobin 36.4 pg (27.0-31.0); Mean Platelet Volume 9.1 fL (7.4-10.4); Platelet Count 299 thou/uL (130-400); RBC Distribution Width 13.4 % (11.5-14.5); Red Blood Cell (RBC) Count 2.07 mill/uL (4.70-6.10); White Blood Cell (WBC) Count 14.9 thou/uL (4.8-10.8)
[2022-07-22 05:17] LABS: ALT (SGPT) 62 U/L (8-55); AST (SGOT) 49 U/L (5-34); Albumin 3.6 g/dL (3.5-5.0); Alkaline Phosphatase 140 U/L (40-110); Anion Gap 13 mmol/L (10-20); BUN (Urea Nitrogen) 25 mg/dL (8.4-25.7); Calc. Creatinine Clearance 167 mL/min (70-130); Carbon Dioxide 30 mmol/L (22-29); Chloride 105 mmol/L (98-107); Estimated GFR 113; Globulin 2.3 g/dL (2.4-3.5); Glucose 168 mg/dL (70-105); Potassium 3.9 mmol/L (3.5-5.1); Protein, Total 5.9 g/dL (6.0-8.3); Sodium 144 mmol/L (136-145)
[2022-07-22] MEDS ORDERED: Magnesium 2 GM/50 ML(in water) 2 GM in Premix Bag 1 BAG IVPB SCH (09:00)
[2022-07-22] MEDS: Fentanyl CADD 100 ML IV SCH (09:01)
[2022-07-22] MEDS ORDERED: Propofol 1,000 MG/100 ML VIAL IV ONE (09:40)
[2022-07-22] MEDS ORDERED: Propofol BOLUS 1,000 MG/100 ML VIAL IV SCH (09:45)
[2022-07-22] MEDS: Furosemide 100 MG/10 ML VIAL SLOW IVP SCH (09:50)
[2022-07-22] MEDS ORDERED: Propofol BOLUS 1,000 MG/100 ML VIAL IV PRN (10:00)
[2022-07-22] MEDS: Heparin 5,000 UNITS/ML VIAL SC SCH ×2 (10:30→21:38)
[2022-07-22] MEDS: Pantoprazole 40 MG VIAL IVP SCH ×2 (10:31→21:38)
[2022-07-22] MEDS: Folic Acid 1 MG TAB PO SCH (10:31)
[2022-07-22 10:35] LABS: Phosphorus 3.9 mg/dL (2.3-4.7)
[2022-07-22] MEDS: Insulin Regular 300 UNITS/3 ML VIAL SC PRN ×3 (11:27→21:38)
[2022-07-22] MEDS: Dexamethasone 4 mg/ml Vial SLOW IVP SCH (11:35)
[2022-07-22] MEDS: Dexamethasone 10 MG/ML VIAL SLOW IVP SCH (11:37)
[2022-07-22] MEDS ORDERED: Sterile Water 10 ML ONE ×2 (12:55→23:40)
[2022-07-22] MEDS: acetaZOLAMIDE Sodium 500 mg Vial IVP SCH ×2 (12:57→23:41)
[2022-07-22] MEDS ORDERED: MAGNESIUM SULFATE IV SCH (14:00)
[2022-07-22] MEDS ORDERED: MULTIVITAMINS IV SCH (14:00)
[2022-07-22] MEDS ORDERED: [UNRECOGNIZED DRUG - OTHER] IV SCH (14:00)
[2022-07-22] MEDS: Propofol 1,000 MG/100 ML VIAL IV PRN (23:38)
[2022-07-23] MEDS: Fentanyl CADD 100 ML IV SCH ×2 (02:57→18:03)
[2022-07-23 05:14] LABS: #Eosinphils 0.1 thou/uL (0.0-0.7); #Lymphocytes 2.1 thou/uL (1.20-3.40); #Monocytes 2.1 thou/uL (0.11-0.59); #Neutrophils 15.5 thou/uL (1.40-6.50); %Eosinophils 0.7 % (0.0-10.0); %Lymphocytes 10.6 % (21.0-51.0); %Monocytes 10.6 % (0.0-10.0); %Neutrophils 78.2 % (42.0-75.0); Hemoglobin 8.1 g/dL (14.0-18.0); Mean Corpuscular HGB CONC 33.5 g/dL (32.0-36.0); Mean Corpuscular Hemoglobin 37.8 pg (27.0-31.0); Mean Platelet Volume 9.4 fL (7.4-10.4); Platelet Count 326 thou/uL (130-400); RBC Distribution Width 13.4 % (11.5-14.5); Red Blood Cell (RBC) Count 2.15 mill/uL (4.70-6.10); White Blood Cell (WBC) Count 19.8 thou/uL (4.8-10.8)
[2022-07-23 05:36] LABS: Magnesium 2.1 mg/dL (1.6-2.6); Triglycerides 128 mg/dL (Less than 150)
[2022-07-23 05:38] LABS: ALT (SGPT) 52 U/L (8-55); AST (SGOT) 38 U/L (5-34); Albumin 3.4 g/dL (3.5-5.0); Alkaline Phosphatase 127 U/L (40-110); Anion Gap 13 mmol/L (10-20); BUN (Urea Nitrogen) 26 mg/dL (8.4-25.7); Bilirubin, Total 0.8 mg/dL (0.2-1.2); Calc. Creatinine Clearance 144 mL/min (70-130); Calcium 9.3 mg/dL (7.8-10.44); Carbon Dioxide 27 mmol/L (22-29); Chloride 107 mmol/L (98-107); Estimated GFR 108; Globulin 2.5 g/dL (2.4-3.5); Glucose 147 mg/dL (70-105); Potassium 3.4 mmol/L (3.5-5.1); Protein, Total 5.9 g/dL (6.0-8.3); Sodium 144 mmol/L (136-145)
[2022-07-23 07:06] LABS: Phosphorus 5.2 mg/dL (2.3-4.7)
[2022-07-23 07:21] LABS: Actual Bicarbonate (HCO3a) 26.6 mEq/L (22-28); Base Excess (BEa) 2.3 mEq/L (-2.0 to +3.0); CO2 Tension 40.2 mmHg (35.0-45.0); Calcium, Ionized (arterial) 1.25 mmol/L (1.12-1.30); Carboxyhemoglobin (COHb) 0.1 gm% (0.0-3.0); Hemoglobin (Hb) 11.6 g/dL (14.0-18.0); Potassium - ABG Lab 3.41 mmol/L (3.70-5.30); pH, Arterial 7.44 (7.35-7.45)
[2022-07-23 07:27] LABS: Puncture Site RRA
[2022-07-23] MEDS ORDERED: Fentanyl 100 MCG/2 ML VIAL ONE (08:52)
[2022-07-23] MEDS ORDERED: Midazolam HCl 2 mg/2 ml Vial ONE (08:52)
[2022-07-23] MEDS ORDERED: Rocuronium Bromide 10 MG/ML (10ML VIAL) ONE (09:29)
[2022-07-23] MEDS ORDERED: PROPOFOL 200 MG/20 ML VIAL ONE (09:29)
[2022-07-23] MEDS ORDERED: Insulin Glargine 30 UNITS/0.3 ML VIAL SC SCH ×4 (09:45→21:00)
[2022-07-23] MEDS ORDERED: Potassium Chloride 40 MEQ in Premix Bag 1 BAG IVPB SCH (09:45)
[2022-07-23] MEDS: Dexamethasone 4 mg/ml Vial SLOW IVP SCH (11:19)
[2022-07-23] MEDS: Pantoprazole 40 MG VIAL IVP SCH ×2 (11:19→21:28)
[2022-07-23] MEDS: Heparin 5,000 UNITS/ML VIAL SC SCH ×2 (11:19→21:27)
[2022-07-23] MEDS: Furosemide 100 MG/10 ML VIAL SLOW IVP SCH (11:19)
[2022-07-23] MEDS: Folic Acid 1 MG TAB PO SCH (11:21)
[2022-07-23] MEDS: Propofol 1,000 MG/100 ML VIAL IV PRN ×2 (12:54→21:27)
[2022-07-23] MEDS ORDERED: Fentanyl CADD 100 ML ONE (18:01)
[2022-07-24] MEDS: Propofol 1,000 MG/100 ML VIAL IV PRN ×2 (04:10→10:29)
[2022-07-24 04:53] LABS: ALT (SGPT) 48 U/L (8-55); AST (SGOT) 35 U/L (5-34); Albumin 3.3 g/dL (3.5-5.0); Alkaline Phosphatase 144 U/L (40-110); Anion Gap 13 mmol/L (10-20); BUN (Urea Nitrogen) 25 mg/dL (8.4-25.7); Bilirubin, Total 0.7 mg/dL (0.2-1.2); Calc. Creatinine Clearance 146 mL/min (70-130); Calcium 9.4 mg/dL (7.8-10.44); Carbon Dioxide 26 mmol/L (22-29); Chloride 108 mmol/L (98-107); Estimated GFR 109; Globulin 2.6 g/dL (2.4-3.5); Glucose 94 mg/dL (70-105); Potassium 3.4 mmol/L (3.5-5.1); Protein, Total 5.9 g/dL (6.0-8.3); Sodium 144 mmol/L (136-145)
[2022-07-24] MEDS ORDERED: Potassium Chloride 40 MEQ in Premix Bag 1 BAG IVPB SCH (05:00)
[2022-07-24 05:08] LABS: Band 5 % (5-11); Hemoglobin 8.8 g/dL (14.0-18.0); Lymphocytes 10 % (21-51); MDiff Complete? YES; Mean Corpuscular HGB CONC 33.5 g/dL (32.0-36.0); Mean Corpuscular Hemoglobin 37.6 pg (27.0-31.0); Mean Platelet Volume 9.3 fL (7.4-10.4); Monocytes 4 % (0-10); Neutrophil 81 % (42-75); Platelet Count 413 thou/uL (130-400); RBC Distribution Width 13.7 % (11.5-14.5); Red Blood Cell (RBC) Count 2.34 mill/uL (4.70-6.10); White Blood Cell (WBC) Count 23.8 thou/uL (4.8-10.8)
[2022-07-24] MEDS ORDERED: Fentanyl CADD 100 ML ONE (05:58)
[2022-07-24] MEDS: Fentanyl CADD 100 ML IV SCH (06:02)
[2022-07-24 07:21] LABS: Actual Bicarbonate (HCO3a) 25.1 mEq/L (22-28); Base Excess (BEa) 1.8 mEq/L (-2.0 to +3.0); CO2 Tension 34.4 mmHg (35.0-45.0); Hemoglobin (Hb) 10.8 g/dL (14.0-18.0); O2 Tension (PaO2), arterial 99.3 mmHg (80.0-100.0); Potassium - ABG Lab 3.53 mmol/L (3.70-5.30); pH, Arterial 7.48 (7.35-7.45)
[2022-07-24 07:42] LABS: Puncture Site LRA
[2022-07-24] MEDS: Pantoprazole 40 MG VIAL IVP SCH ×2 (09:29→21:01)
[2022-07-24] MEDS: Furosemide 100 MG/10 ML VIAL SLOW IVP SCH (09:29)
[2022-07-24] MEDS: Folic Acid 1 MG TAB PO SCH (09:29)
[2022-07-24] MEDS: Heparin 5,000 UNITS/ML VIAL SC SCH ×2 (09:30→21:00)
[2022-07-24] MEDS: Dexamethasone 4 mg/ml Vial SLOW IVP SCH (10:31)
[2022-07-24] MEDS ORDERED: Dexmedetomidine In 0.9 % NaCl 100 ML IVPB SCH (11:00)
[2022-07-24] MEDS: fentaNYL 100 mcg/hour Patch TD SCH (11:52)
[2022-07-24 12:02] LABS: Potassium 3.5 mmol/L (3.5-5.1)
[2022-07-24] MEDS ORDERED: NOREPINEPHRINE 8 MG/250 ML-D5W 250 ML IVPB SCH (18:30)
[2022-07-24] MEDS: pyridOXINE 50 MG (B6) TAB PO SCH (21:40)
[2022-07-24] MEDS: Cyanocobalamin (Vitamin B-12) 1,000 MCG TAB PO SCH (21:40)
[2022-07-24] MEDS: Senokot S 8.6-50 MG TAB PO SCH (21:40)
[2022-07-24] MEDS: Thiamine 100 MG TAB PO SCH (21:41)
[2022-07-25] MEDS: Propofol 1,000 MG/100 ML VIAL IV PRN ×3 (02:31→20:33)
[2022-07-25 04:13] LABS: #Eosinphils 0.1 thou/uL (0.0-0.7); #Lymphocytes 2.7 thou/uL (1.20-3.40); #Monocytes 2.7 thou/uL (0.11-0.59); #Neutrophils 19.6 thou/uL (1.40-6.50); %Basophils 0.1 % (0.0-1.0); %Eosinophils 0.2 % (0.0-10.0); %Lymphocytes 10.6 % (21.0-51.0); %Monocytes 10.9 % (0.0-10.0); %Neutrophils 78.1 % (42.0-75.0); Hemoglobin 9.1 g/dL (14.0-18.0); Mean Corpuscular HGB CONC 32.7 g/dL (32.0-36.0); Mean Corpuscular Hemoglobin 36.6 pg (27.0-31.0); Mean Platelet Volume 8.9 fL (7.4-10.4); Platelet Count 506 thou/uL (130-400); RBC Distribution Width 13.6 % (11.5-14.5); Red Blood Cell (RBC) Count 2.48 mill/uL (4.70-6.10); White Blood Cell (WBC) Count 25.1 thou/uL (4.8-10.8)
[2022-07-25 04:32] LABS: ALT (SGPT) 39 U/L (8-55); AST (SGOT) 28 U/L (5-34); Albumin 3.1 g/dL (3.5-5.0); Alkaline Phosphatase 126 U/L (40-110); Anion Gap 15 mmol/L (10-20); BUN (Urea Nitrogen) 22 mg/dL (8.4-25.7); Bilirubin, Total 1.1 mg/dL (0.2-1.2); Calc. Creatinine Clearance 133 mL/min (70-130); Calcium 9.6 mg/dL (7.8-10.44); Carbon Dioxide 25 mmol/L (22-29); Chloride 109 mmol/L (98-107); Estimated GFR 105; Globulin 2.8 g/dL (2.4-3.5); Glucose 112 mg/dL (70-105); Potassium 3.3 mmol/L (3.5-5.1); Protein, Total 5.9 g/dL (6.0-8.3); Sodium 146 mmol/L (136-145)
[2022-07-25] MEDS ORDERED: Potassium Chloride 40 MEQ in Premix Bag 1 BAG IVPB SCH (05:00)
[2022-07-25 06:58] LABS: Actual Bicarbonate (HCO3a) 25.9 mEq/L (22-28); Base Excess (BEa) 2.1 mEq/L (-2.0 to +3.0); CO2 Tension 37.3 mmHg (35.0-45.0); Calcium, Ionized (arterial) 1.25 mmol/L (1.12-1.30); Carboxyhemoglobin (COHb) 0.3 gm% (0.0-3.0); Hemoglobin (Hb) 9.3 g/dL (14.0-18.0); O2 Tension (PaO2), arterial 95.9 mmHg (80.0-100.0); Potassium - ABG Lab 3.48 mmol/L (3.70-5.30); pH, Arterial 7.46 (7.35-7.45)
[2022-07-25 07:14] LABS: ALV-art Gradient 142.675 mmHg (0-20); Puncture Site RRA
[2022-07-25] MEDS: Pantoprazole 40 MG VIAL IVP SCH ×2 (08:01→22:25)
[2022-07-25] MEDS: Heparin 5,000 UNITS/ML VIAL SC SCH ×2 (08:01→22:24)
[2022-07-25] MEDS: Folic Acid 1 MG TAB PO SCH (08:01)
[2022-07-25] MEDS: Dexamethasone 4 mg/ml Vial SLOW IVP SCH (08:47)
[2022-07-25 11:45] LABS: Potassium 4.4 mmol/L (3.5-5.1)
[2022-07-25] MEDS ORDERED: Midazolam HCl 2 mg/2 ml Vial SLOW IVP SCH (13:00)
[2022-07-25] MEDS ORDERED: Vecuronium 10 MG VIAL IVP SCH ×2 (13:00→13:36)
[2022-07-25] MEDS ORDERED: Sodium Bicarbonate 2.5 MEQ/5 ML VIAL ONE (13:32)
[2022-07-25] MEDS ORDERED: Vecuronium 10 MG VIAL ONE (13:34)
[2022-07-25] MEDS ORDERED: SODIUM ACETATE IV SCH (14:00)
[2022-07-25] MEDS ORDERED: SODIUM CHLORIDE IV SCH (14:00)
[2022-07-25] MEDS ORDERED: [UNRECOGNIZED DRUG - OTHER] IV SCH (14:00)
[2022-07-25] MEDS ORDERED: POTASSIUM CHLORIDE IV SCH (14:00)
[2022-07-25] MEDS ORDERED: Iopamidol-370 76% 500 ML 1 ML ONE (15:12)
[2022-07-25] MEDS ORDERED: Piperacillin/Tazobactam 3.375 GM in Sodium Chloride 0.9% 100 ML IVPB SCH ×2 (16:00→18:00)
[2022-07-25 17:00] LABS: BF Color Yellow; Body Fluid Source Abscess Fluid; Clarity Hazy (Clear); Tube # EDTA
[2022-07-25] MEDS: Insulin Regular 300 UNITS/3 ML VIAL SC PRN (17:49)
[2022-07-25] MEDS: Micafungin 100 MG in Sodium Chloride 0.9% 100 ML IVPB SCH (17:50)
[2022-07-25] MEDS: Piperacillin/Tazobactam 3.375 GM in Sodium Chloride 0.9% 100 ML IVPB SCH (20:33)
[2022-07-26] MEDS: Propofol 1,000 MG/100 ML VIAL IV PRN ×4 (01:50→22:06)
[2022-07-26] MEDS: Piperacillin/Tazobactam 3.375 GM in Sodium Chloride 0.9% 100 ML IVPB SCH ×3 (03:44→20:40)
[2022-07-26 04:58] LABS: #Eosinphils 0.2 thou/uL (0.0-0.7); #Monocytes 1.4 thou/uL (0.11-0.59); #Neutrophils 12.8 thou/uL (1.40-6.50); %Basophils 0.2 % (0.0-1.0); %Eosinophils 1.5 % (0.0-10.0); %Lymphocytes 12.1 % (21.0-51.0); %Monocytes 8.5 % (0.0-10.0); %Neutrophils 77.7 % (42.0-75.0); Hemoglobin 7.3 g/dL (14.0-18.0); Mean Corpuscular HGB CONC 33.6 g/dL (32.0-36.0); Mean Corpuscular Hemoglobin 37.7 pg (27.0-31.0); Mean Platelet Volume 9.1 fL (7.4-10.4); Platelet Count 441 thou/uL (130-400); RBC Distribution Width 13.3 % (11.5-14.5); Red Blood Cell (RBC) Count 1.94 mill/uL (4.70-6.10); White Blood Cell (WBC) Count 16.4 thou/uL (4.8-10.8)
[2022-07-26 05:19] LABS: ALT (SGPT) 32 U/L (8-55); AST (SGOT) 29 U/L (5-34); Albumin 2.8 g/dL (3.5-5.0); Alkaline Phosphatase 113 U/L (40-110); Anion Gap 13 mmol/L (10-20); BUN (Urea Nitrogen) 22 mg/dL (8.4-25.7); Bilirubin, Total 0.5 mg/dL (0.2-1.2); Calc. Creatinine Clearance 144 mL/min (70-130); Calcium 9.1 mg/dL (7.8-10.44); Carbon Dioxide 25 mmol/L (22-29); Chloride 114 mmol/L (98-107); Estimated GFR 109; Globulin 2.6 g/dL (2.4-3.5); Glucose 127 mg/dL (70-105); Protein, Total 5.4 g/dL (6.0-8.3); Sodium 149 mmol/L (136-145)
[2022-07-26] MEDS ORDERED: Potassium Chloride 40 MEQ in Premix Bag 1 BAG IVPB SCH (06:00)
[2022-07-26 07:21] LABS: Actual Bicarbonate (HCO3a) 24.4 mEq/L (22-28); Base Excess (BEa) 0.7 mEq/L (-2.0 to +3.0); CO2 Tension 34.9 mmHg (35.0-45.0); Calcium, Ionized (arterial) 1.18 mmol/L (1.12-1.30); Carboxyhemoglobin (COHb) 0.1 gm% (0.0-3.0); Hemoglobin (Hb) 7.2 g/dL (14.0-18.0); O2 Tension (PaO2), arterial 130.6 mmHg (80.0-100.0); Potassium - ABG Lab 3.01 mmol/L (3.70-5.30); pH, Arterial 7.46 (7.35-7.45)
[2022-07-26 07:25] LABS: ALV-art Gradient 110.975 mmHg (0-20); Puncture Site RRA
[2022-07-26] MEDS ORDERED: Dextrose 5% in Water 1,000 ML IV SCH (08:30)
[2022-07-26] MEDS: Heparin 5,000 UNITS/ML VIAL SC SCH ×2 (08:43→20:41)
[2022-07-26] MEDS: Dexamethasone 4 mg/ml Vial SLOW IVP SCH (08:43)
[2022-07-26] MEDS: Pantoprazole 40 MG VIAL IVP SCH ×2 (08:43→20:41)
[2022-07-26] MEDS: Folic Acid 1 MG TAB PO SCH (08:43)
[2022-07-26 12:02] LABS: Potassium 3.4 mmol/L (3.5-5.1)
[2022-07-26] MEDS ORDERED: PROPOFOL 20 ML ONE (13:00)
[2022-07-26] MEDS ORDERED: Ketamine 50 MG/ML (10ML VIAL) ONE (13:00)
[2022-07-26] MEDS ORDERED: Succinylcholine 200 MG/10 ml SYRINGE FS ONE (13:00)
[2022-07-26] MEDS ORDERED: fentaNYL Citrate/PF 100 MCG/2 ML SYRINGE ONE (13:04)
[2022-07-26] MEDS ORDERED: SODIUM ACETATE IV SCH (14:00)
[2022-07-26] MEDS ORDERED: POTASSIUM CHLORIDE IV SCH (14:00)
[2022-07-26] MEDS ORDERED: [UNRECOGNIZED DRUG - OTHER] IV SCH (14:00)
[2022-07-26] MEDS ORDERED: SODIUM CHLORIDE IV SCH (14:00)
[2022-07-26 14:31] LABS: Potassium 3.5 mmol/L (3.5-5.1)
[2022-07-26] MEDS ORDERED: PROPOFOL 200 MG/20 ML VIAL ONE (15:50)
[2022-07-26] MEDS ORDERED: Rocuronium Bromide 10 MG/ML (10ML VIAL) ONE (15:50)
[2022-07-26] MEDS: Micafungin 100 MG in Sodium Chloride 0.9% 100 ML IVPB SCH (16:56)
[2022-07-27 04:58] LABS: #Eosinphils 0.2 thou/uL (0.0-0.7); #Lymphocytes 1.6 thou/uL (1.20-3.40); #Monocytes 0.8 thou/uL (0.11-0.59); #Neutrophils 11.7 thou/uL (1.40-6.50); %Basophils 0.2 % (0.0-1.0); %Eosinophils 1.6 % (0.0-10.0); %Monocytes 5.8 % (0.0-10.0); %Neutrophils 81.4 % (42.0-75.0); Hemoglobin 8.2 g/dL (14.0-18.0); Mean Corpuscular HGB CONC 33.4 g/dL (32.0-36.0); Mean Corpuscular Hemoglobin 36.9 pg (27.0-31.0); Mean Platelet Volume 8.8 fL (7.4-10.4); Platelet Count 401 thou/uL (130-400); RBC Distribution Width 13.5 % (11.5-14.5); Red Blood Cell (RBC) Count 2.22 mill/uL (4.70-6.10); White Blood Cell (WBC) Count 14.4 thou/uL (4.8-10.8)
[2022-07-27 05:20] LABS: Magnesium 1.6 mg/dL (1.6-2.6); Triglycerides 103 mg/dL (Less than 150)
[2022-07-27 05:21] LABS: ALT (SGPT) 30 U/L (8-55); AST (SGOT) 21 U/L (5-34); Albumin 2.9 g/dL (3.5-5.0); Alkaline Phosphatase 98 U/L (40-110); Anion Gap 13 mmol/L (10-20); BUN (Urea Nitrogen) 20 mg/dL (8.4-25.7); Bilirubin, Total 0.5 mg/dL (0.2-1.2); Calc. Creatinine Clearance 168 mL/min (70-130); Calcium 8.8 mg/dL (7.8-10.44); Carbon Dioxide 22 mmol/L (22-29); Chloride 112 mmol/L (98-107); Estimated GFR 114; Globulin 2.9 g/dL (2.4-3.5); Glucose 116 mg/dL (70-105); Potassium 3.2 mmol/L (3.5-5.1); Protein, Total 5.8 g/dL (6.0-8.3); Sodium 144 mmol/L (136-145)
[2022-07-27] MEDS: Propofol 1,000 MG/100 ML VIAL IV PRN (06:45)
[2022-07-27] MEDS: Metoclopramide HCl 10 MG/2 ML VIAL IVP PRN (07:38)
[2022-07-27] MEDS: Piperacillin/Tazobactam 3.375 GM in Sodium Chloride 0.9% 100 ML IVPB SCH ×3 (07:45→19:46)
[2022-07-27] MEDS ORDERED: Magnesium 2 GM/50 ML(in water) 2 GM in Premix Bag 1 BAG IVPB SCH (08:00)
[2022-07-27] MEDS ORDERED: Potassium Chloride 40 MEQ in Premix Bag 1 BAG IVPB SCH (08:00)
[2022-07-27] MEDS: Pantoprazole 40 MG VIAL IVP SCH ×2 (08:34→20:53)
[2022-07-27] MEDS: Folic Acid 1 MG TAB PO SCH (08:34)
[2022-07-27] MEDS: Heparin 5,000 UNITS/ML VIAL SC SCH ×2 (08:34→20:53)
[2022-07-27] MEDS: Dexamethasone 4 mg/ml Vial SLOW IVP SCH (08:34)
[2022-07-27] MEDS ORDERED: Electrolyte Replacement Protocol 1 EACH FS ONE (08:43)
[2022-07-27] MEDS ORDERED: Electrolyte Replacement Protocol FS PRN (09:15)
[2022-07-27] MEDS: fentaNYL 100 mcg/hour Patch TD SCH (11:56)
[2022-07-27] MEDS: Micafungin 100 MG in Sodium Chloride 0.9% 100 ML IVPB SCH (15:49)
[2022-07-27] MEDS ORDERED: Dexmedetomidine 1,000 MCG in Sodium Chloride 0.9% 250 ML 240 ML IVPB SCH (19:30)
[2022-07-28] MEDS: Piperacillin/Tazobactam 3.375 GM in Sodium Chloride 0.9% 100 ML IVPB SCH ×3 (04:11→19:54)
[2022-07-28 04:44] LABS: #Eosinphils 0.3 thou/uL (0.0-0.7); #Neutrophils 11.3 thou/uL (1.40-6.50); %Basophils 0.2 % (0.0-1.0); %Lymphocytes 13.7 % (21.0-51.0); %Monocytes 6.6 % (0.0-10.0); %Neutrophils 77.4 % (42.0-75.0); Hemoglobin 7.6 g/dL (14.0-18.0); Mean Corpuscular Hemoglobin 37.7 pg (27.0-31.0); Mean Platelet Volume 8.8 fL (7.4-10.4); Platelet Count 419 thou/uL (130-400); RBC Distribution Width 13.6 % (11.5-14.5); Red Blood Cell (RBC) Count 2.02 mill/uL (4.70-6.10); White Blood Cell (WBC) Count 14.5 thou/uL (4.8-10.8)
[2022-07-28 05:07] LABS: ALT (SGPT) 26 U/L (8-55); AST (SGOT) 22 U/L (5-34); Albumin 2.9 g/dL (3.5-5.0); Alkaline Phosphatase 104 U/L (40-110); Anion Gap 14 mmol/L (10-20); BUN (Urea Nitrogen) 17 mg/dL (8.4-25.7); Bilirubin, Total 0.7 mg/dL (0.2-1.2); Calc. Creatinine Clearance 150 mL/min (70-130); Carbon Dioxide 22 mmol/L (22-29); Chloride 110 mmol/L (98-107); Estimated GFR 111; Glucose 132 mg/dL (70-105); Potassium 3.5 mmol/L (3.5-5.1); Protein, Total 5.9 g/dL (6.0-8.3); Sodium 142 mmol/L (136-145)
[2022-07-28] MEDS ORDERED: Potassium Chloride 40 MEQ in Premix Bag 1 BAG IVPB SCH (08:00)
[2022-07-28] MEDS: Folic Acid 1 MG TAB PO SCH (08:20)
[2022-07-28] MEDS: Metoclopramide HCl 10 MG/2 ML VIAL IVP PRN (08:22)
[2022-07-28] MEDS: Dexamethasone 4 mg/ml Vial SLOW IVP SCH (08:22)
[2022-07-28] MEDS: Heparin 5,000 UNITS/ML VIAL SC SCH ×2 (08:22→20:38)
[2022-07-28] MEDS: Pantoprazole 40 MG VIAL IVP SCH ×2 (08:23→20:38)
[2022-07-28] MEDS ORDERED: OLANZapine 2.5 MG TAB PO SCH (10:30)
[2022-07-28] MEDS ORDERED: FLUoxetine HCl 20 MG/5 ML UDCUP PER TUBE SCH (10:30)
[2022-07-28] MEDS ORDERED: fentaNYL 75 mcg/hour Patch TD SCH (12:30)
[2022-07-28 14:56] LABS: Potassium 4.5 mmol/L (3.5-5.1)
[2022-07-28] MEDS: Micafungin 100 MG in Sodium Chloride 0.9% 100 ML IVPB SCH (16:48)
[2022-07-28] MEDS: Metoclopramide HCl 10 MG/2 ML VIAL IVP SCH ×2 (17:40→23:52)
[2022-07-29] MEDS: Piperacillin/Tazobactam 3.375 GM in Sodium Chloride 0.9% 100 ML IVPB SCH ×3 (04:06→19:30)
[2022-07-29 04:58] LABS: #Eosinphils 0.2 thou/uL (0.0-0.7); #Lymphocytes 1.9 thou/uL (1.20-3.40); #Monocytes 1.1 thou/uL (0.11-0.59); #Neutrophils 12.5 thou/uL (1.40-6.50); %Basophils 0.2 % (0.0-1.0); %Eosinophils 1.5 % (0.0-10.0); %Lymphocytes 12.3 % (21.0-51.0); %Monocytes 6.9 % (0.0-10.0); %Neutrophils 79.2 % (42.0-75.0); Hemoglobin 7.8 g/dL (14.0-18.0); Mean Corpuscular HGB CONC 34.6 g/dL (32.0-36.0); Mean Corpuscular Hemoglobin 38.3 pg (27.0-31.0); Mean Platelet Volume 8.5 fL (7.4-10.4); Platelet Count 425 thou/uL (130-400); Red Blood Cell (RBC) Count 2.03 mill/uL (4.70-6.10); White Blood Cell (WBC) Count 15.8 thou/uL (4.8-10.8)
[2022-07-29 05:13] LABS: ALT (SGPT) 24 U/L (8-55); AST (SGOT) 24 U/L (5-34); Alkaline Phosphatase 102 U/L (40-110); Anion Gap 14 mmol/L (10-20); BUN (Urea Nitrogen) 14 mg/dL (8.4-25.7); Bilirubin, Total 0.5 mg/dL (0.2-1.2); Calc. Creatinine Clearance 153 mL/min (70-130); Calcium 8.5 mg/dL (7.8-10.44); Carbon Dioxide 23 mmol/L (22-29); Chloride 108 mmol/L (98-107); Estimated GFR 111; Globulin 3.1 g/dL (2.4-3.5); Glucose 108 mg/dL (70-105); Magnesium 1.7 mg/dL (1.6-2.6); Phosphorus 4.5 mg/dL (2.3-4.7); Potassium 3.4 mmol/L (3.5-5.1); Protein, Total 6.1 g/dL (6.0-8.3); Sodium 142 mmol/L (136-145)
[2022-07-29] MEDS: Metoclopramide HCl 10 MG/2 ML VIAL IVP SCH ×4 (06:38→23:51)
[2022-07-29] MEDS ORDERED: Potassium Chloride 40 MEQ in Premix Bag 1 BAG IVPB SCH (08:00)
[2022-07-29] MEDS ORDERED: Magnesium 2 GM/50 ML(in water) 2 GM in Premix Bag 1 BAG IVPB SCH (08:00)
[2022-07-29] MEDS: Heparin 5,000 UNITS/ML VIAL SC SCH ×2 (08:28→20:50)
[2022-07-29] MEDS: OLANZapine 2.5 MG TAB PO SCH (08:29)
[2022-07-29] MEDS: Pantoprazole 40 MG VIAL IVP SCH ×2 (08:29→20:50)
[2022-07-29] MEDS: Folic Acid 1 MG TAB PO SCH (08:29)
[2022-07-29] MEDS: FLUoxetine HCl 20 MG/5 ML UDCUP PER TUBE SCH (08:30)
[2022-07-29] MEDS: Dexamethasone 4 mg/ml Vial SLOW IVP SCH (08:38)
[2022-07-29 14:17] LABS: Potassium 3.8 mmol/L (3.5-5.1)
[2022-07-29] MEDS: Micafungin 100 MG in Sodium Chloride 0.9% 100 ML IVPB SCH (16:48)
[2022-07-30] MEDS: Piperacillin/Tazobactam 3.375 GM in Sodium Chloride 0.9% 100 ML IVPB SCH ×3 (03:24→19:48)
[2022-07-30 04:48] LABS: #Eosinphils 0.3 thou/uL (0.0-0.7); #Lymphocytes 2.2 thou/uL (1.20-3.40); #Neutrophils 12.7 thou/uL (1.40-6.50); %Basophils 0.1 % (0.0-1.0); %Eosinophils 1.6 % (0.0-10.0); %Lymphocytes 13.7 % (21.0-51.0); %Monocytes 6.3 % (0.0-10.0); %Neutrophils 78.2 % (42.0-75.0); Hemoglobin 8.1 g/dL (14.0-18.0); Mean Corpuscular HGB CONC 33.3 g/dL (32.0-36.0); Mean Corpuscular Hemoglobin 36.6 pg (27.0-31.0); Mean Platelet Volume 8.2 fL (7.4-10.4); Platelet Count 426 thou/uL (130-400); RBC Distribution Width 13.8 % (11.5-14.5); Red Blood Cell (RBC) Count 2.22 mill/uL (4.70-6.10); White Blood Cell (WBC) Count 16.2 thou/uL (4.8-10.8)
[2022-07-30 05:12] LABS: ALT (SGPT) 24 U/L (8-55); AST (SGOT) 24 U/L (5-34); Alkaline Phosphatase 104 U/L (40-110); Anion Gap 15 mmol/L (10-20); BUN (Urea Nitrogen) 9 mg/dL (8.4-25.7); Bilirubin, Total 0.6 mg/dL (0.2-1.2); Calc. Creatinine Clearance 163 mL/min (70-130); Calcium 8.6 mg/dL (7.8-10.44); Carbon Dioxide 25 mmol/L (22-29); Chloride 107 mmol/L (98-107); Estimated GFR 113; Globulin 3.2 g/dL (2.4-3.5); Glucose 133 mg/dL (70-105); Potassium 3.5 mmol/L (3.5-5.1); Protein, Total 6.2 g/dL (6.0-8.3); Sodium 143 mmol/L (136-145)
[2022-07-30] MEDS: Metoclopramide HCl 10 MG/2 ML VIAL IVP SCH ×3 (05:24→17:02)
[2022-07-30] MEDS ORDERED: Potassium Chloride 40 MEQ in Premix Bag 1 BAG IVPB SCH (06:30)
[2022-07-30] MEDS: Folic Acid 1 MG TAB PO SCH (08:37)
[2022-07-30] MEDS: Heparin 5,000 UNITS/ML VIAL SC SCH ×2 (08:37→19:49)
[2022-07-30] MEDS: FLUoxetine HCl 20 MG/5 ML UDCUP PER TUBE SCH (08:37)
[2022-07-30] MEDS: Pantoprazole 40 MG VIAL IVP SCH ×2 (08:37→19:49)
[2022-07-30] MEDS: OLANZapine 2.5 MG TAB PO SCH (08:38)
[2022-07-30] MEDS ORDERED: Morphine 2 MG/ML VIAL SLOW IVP PRN (10:17)
[2022-07-30] MEDS ORDERED: Scopolamine 1.5 mg/72 hour Patch TOP SCH (10:45)
[2022-07-30] MEDS ORDERED: fentaNYL 75 mcg/hour Patch TD SCH (12:00)
[2022-07-30] MEDS ORDERED: hydrALAZINE 20 MG/ML VIAL SLOW IVP PRN (14:51)
[2022-07-30] MEDS: Labetalol HCl 100 MG/20 ML VIAL SLOW IVP PRN (16:17)
[2022-07-30] MEDS: Micafungin 100 MG in Sodium Chloride 0.9% 100 ML IVPB SCH (16:17)
[2022-07-31] MEDS: Metoclopramide HCl 10 MG/2 ML VIAL IVP SCH ×3 (00:11→11:58)
[2022-07-31 02:48] LABS: #Eosinphils 0.4 thou/uL (0.0-0.7); #Lymphocytes 2.1 thou/uL (1.20-3.40); #Monocytes 0.9 thou/uL (0.11-0.59); #Neutrophils 12.2 thou/uL (1.40-6.50); %Basophils 0.2 % (0.0-1.0); %Eosinophils 2.3 % (0.0-10.0); %Lymphocytes 13.6 % (21.0-51.0); %Monocytes 5.8 % (0.0-10.0); %Neutrophils 78.1 % (42.0-75.0); Hemoglobin 8.2 g/dL (14.0-18.0); Mean Corpuscular HGB CONC 33.9 g/dL (32.0-36.0); Mean Corpuscular Hemoglobin 37.7 pg (27.0-31.0); Mean Platelet Volume 7.8 fL (7.4-10.4); Platelet Count 378 thou/uL (130-400); RBC Distribution Width 13.8 % (11.5-14.5); Red Blood Cell (RBC) Count 2.17 mill/uL (4.70-6.10); White Blood Cell (WBC) Count 15.7 thou/uL (4.8-10.8)
[2022-07-31 03:22] LABS: ALT (SGPT) 21 U/L (8-55); AST (SGOT) 28 U/L (5-34); Alkaline Phosphatase 107 U/L (40-110); Anion Gap 14 mmol/L (10-20); BUN (Urea Nitrogen) 12 mg/dL (8.4-25.7); Bilirubin, Total 0.5 mg/dL (0.2-1.2); Calc. Creatinine Clearance 162 mL/min (70-130); Calcium 8.9 mg/dL (7.8-10.44); Carbon Dioxide 26 mmol/L (22-29); Chloride 106 mmol/L (98-107); Estimated GFR 113; Globulin 3.2 g/dL (2.4-3.5); Glucose 146 mg/dL (70-105); Potassium 3.8 mmol/L (3.5-5.1); Protein, Total 6.2 g/dL (6.0-8.3); Sodium 142 mmol/L (136-145)
[2022-07-31 03:35] LABS: Magnesium 1.9 mg/dL (1.6-2.6)
[2022-07-31] MEDS: Piperacillin/Tazobactam 3.375 GM in Sodium Chloride 0.9% 100 ML IVPB SCH ×2 (04:45→11:59)
[2022-07-31] MEDS ORDERED: Magnesium 2 GM/50 ML(in water) 2 GM in Premix Bag 1 BAG IVPB SCH (06:30)
[2022-07-31 07:16] VITALS: BMI 26.9
[2022-07-31 07:22] VITALS: TEMP 98.4
[2022-07-31] MEDS: Heparin 5,000 UNITS/ML VIAL SC SCH (08:55)
[2022-07-31] MEDS: Pantoprazole 40 MG VIAL IVP SCH (08:56)
[2022-07-31] MEDS: Folic Acid 1 MG TAB PO SCH (08:56)
[2022-07-31] MEDS: Labetalol HCl 100 MG/20 ML VIAL SLOW IVP PRN ×2 (08:56→12:02)
[2022-07-31] MEDS: OLANZapine 2.5 MG TAB PO SCH (08:56)
[2022-07-31 08:57] VITALS: BP 173/98
[2022-07-31] MEDS: FLUoxetine HCl 20 MG/5 ML UDCUP PER TUBE SCH (09:24)
[2022-07-31] MEDS ORDERED: Labetalol HCl 100 MG/20 ML VIAL SLOW IVP PRN (12:45)
== END 2022-07-31 14:25 | DRG 4 ==
LOC: ERS 13:10 → EDBD 13:10 → 2NO 16:27 → IMCU/EMU 07-07 19:11 → CCU 07-08 18:45
PROVIDERS: ADMIT Hospitalist; ATTEND Hospitalist
PROC: 0BH17EZ Insertion of Endotracheal Airway into Trachea, Via Natural or Artificial Opening (ICD-10-PCS; principal; 2022-07-08)
PROC: 5A1955Z Respiratory Ventilation, Greater than 96 Consecutive Hours (ICD-10-PCS; 2022-07-08)
PROC: 0D9670Z Drainage of Stomach with Drainage Device, Via Natural or Artificial Opening (ICD-10-PCS; 2022-07-08)
PROC: 3E033XZ Introduction of Vasopressor into Peripheral Vein, Percutaneous Approach (ICD-10-PCS; 2022-07-08)
PROC: 06HY33Z Insertion of Infusion Device into Lower Vein, Percutaneous Approach (ICD-10-PCS; 2022-07-12)
PROC: 03HY32Z Insertion of Monitoring Device into Upper Artery, Percutaneous Approach (ICD-10-PCS; 2022-07-12)
PROC: 3E0336Z Introduction of Nutritional Substance into Peripheral Vein, Percutaneous Approach (ICD-10-PCS; 2022-07-12)
PROC: 02HV33Z Insertion of Infusion Device into Superior Vena Cava, Percutaneous Approach (ICD-10-PCS; 2022-07-16)
PROC: B548ZZA Ultrasonography of Superior Vena Cava, Guidance (ICD-10-PCS; 2022-07-16)
PROC: 0B113F4 Bypass Trachea to Cutaneous with Tracheostomy Device, Percutaneous Approach (ICD-10-PCS; 2022-07-23)
PROC: 0DH63UZ Insertion of Feeding Device into Stomach, Percutaneous Approach (ICD-10-PCS; 2022-07-23)
PROC: 0F9G3ZZ Drainage of Pancreas, Percutaneous Approach (ICD-10-PCS; 2022-07-25)
PROC: 0DH98UZ Insertion of Feeding Device into Duodenum, Via Natural or Artificial Opening Endoscopic (ICD-10-PCS; 2022-07-26)
DX: A41.9 Sepsis, unspecified organism (principal); K85.21 Alcohol induced acute pancreatitis with uninfected necrosis; G93.41 Metabolic encephalopathy; J80 Acute respiratory distress syndrome; N17.0 Acute kidney failure with tubular necrosis; R65.21 Severe sepsis with septic shock; J18.9 Pneumonia, unspecified organism; F10.231 Alcohol dependence with withdrawal delirium; K86.3 Pseudocyst of pancreas; J90 Pleural effusion, not elsewhere classified; E44.0 Moderate protein-calorie malnutrition; K56.7 Ileus, unspecified; E87.0 Hyperosmolality and hypernatremia; E87.1 Hypo-osmolality and hyponatremia; K31.1 Adult hypertrophic pyloric stenosis; G72.81 Critical illness myopathy; Z51.5 Encounter for palliative care; E86.0 Dehydration; E87.6 Hypokalemia; K21.9 Gastro-esophageal reflux disease without esophagitis; K70.0 Alcoholic fatty liver; E83.42 Hypomagnesemia; F41.9 Anxiety disorder, unspecified; F32.A Depression, unspecified; E83.39 Other disorders of phosphorus metabolism; E88.09 Other disorders of plasma-protein metabolism, not elsewhere classified; E87.70 Fluid overload, unspecified; K70.11 Alcoholic hepatitis with ascites; E83.51 Hypocalcemia; E87.5 Hyperkalemia; R31.29 Other microscopic hematuria; E16.2 Hypoglycemia, unspecified; R81 Glycosuria; R13.12 Dysphagia, oropharyngeal phase; R73.9 Hyperglycemia, unspecified; E87.8 Other disorders of electrolyte and fluid balance, not elsewhere classified; Z87.891 Personal history of nicotine dependence; Z79.899 Other long term (current) drug therapy; Z68.26 Body mass index [BMI] 26.0-26.9, adult
CPT/HCPCS: 36415; 36416; 36569; 36600; 70450; 71045; 74018; 74019; 74176; 74178; 74230; 75984; 76705; 80053; 81001; 82010; 82140; 82533; 82805; 83605; 83690; 83735; 83880; 84100; 84439; 84443; 84478; 84481; 84484; 85025; 85060; 85379; 85610; 85730; 86140; 87040; 87070; 87205; 87324; 87449; 89051; 93005; 93010; 93970; 94002; 94003; 94640; 94760; 96361; 96365; 96367; 97139; C1751; C9113; J0360; J0610; J1100; J1120; J1642; J1644; J1815; J1940; J2185; J2248; J2250; J2270; J2543; J2704; J2765; J3010; J3411; J3475; J3480; J3490; J7030; J7042; J7050; J7070; J7620; J7999; P9047; Q9967; U0002; U0003; U0005

== ENCOUNTER 2023-02-20 11:33 | Emergency (ER) | payer OTHER ==
[2023-02-20 12:33] LABS: #Eosinphils 0.2 thou/uL (0.0-0.7); #Lymphocytes 2.7 thou/uL (1.20-3.40); #Monocytes 0.6 thou/uL (0.11-0.59); #Neutrophils 5.2 thou/uL (1.40-6.50); %Basophils 0.4 % (0.0-1.0); %Eosinophils 1.8 % (0.0-10.0); %Lymphocytes 30.7 % (21.0-51.0); %Monocytes 7.1 % (0.0-10.0); %Neutrophils 60.1 % (42.0-75.0); Hemoglobin 13.9 g/dL (14.0-18.0); Mean Corpuscular HGB CONC 33.9 g/dL (32.0-36.0); Mean Corpuscular Hemoglobin 31.2 pg (27.0-31.0); Platelet Count 314 10x3/uL (130-400); RBC Distribution Width 11.5 % (11.5-14.5); Red Blood Cell (RBC) Count 4.46 mill/uL (4.70-6.10); White Blood Cell (WBC) Count 8.6 10x3/uL (4.8-10.8)
[2023-02-20 12:52] LABS: ALT (SGPT) 20 U/L (8-55); AST (SGOT) 22 U/L (5-34); Alkaline Phosphatase 127 U/L (40-110); Anion Gap 16 mmol/L (10-20); BUN (Urea Nitrogen) 11 mg/dL (8.4-25.7); Bilirubin, Total 0.5 mg/dL (0.2-1.2); Calc. Creatinine Clearance 0 mL/min (70-130); Calcium 10.5 mg/dL (7.8-10.44); Carbon Dioxide 21 mmol/L (22-29); Chloride 108 mmol/L (98-107); Estimated GFR 78; Globulin 3.1 g/dL (2.4-3.5); Glucose 96 mg/dL (70-105); Potassium 3.5 mmol/L (3.5-5.1); Protein, Total 8.1 g/dL (6.0-8.3); Sodium 141 mmol/L (136-145)
[2023-02-20] MEDS ORDERED: predniSONE 20 MG TAB ONE (16:31)
[2023-02-20] MEDS ORDERED: Oxymetazoline HCl 0.05% (30 ML BOT) ONE (16:31)
== END 2023-02-20 16:40 | disposition home or self-care (01) ==
LOC: ERS 11:33
DX: B34.9 Viral infection, unspecified (principal); J45.909 Unspecified asthma, uncomplicated; Z87.891 Personal history of nicotine dependence
CPT/HCPCS: 36415; 71045; 80053; 84484; 85025; 93005; J7512